=== PATIENT | female | born 1965 | race American Indian/Alaskan Native ===

== ENCOUNTER 2016-06-24 01:02 | Emergency (ER) | payer SELFPAY ==
[2016-06-24] MEDS ORDERED: TYLENOL ONE (06:37)
[2016-06-24] MEDS ORDERED: TYLENOL PO ONE (06:43)
--- NOTE | 2016-06-24 07:45 | XRay Report ---
FINAL REPORT PROCEDURE: XR SHOULDER 2 LT TECHNIQUE: AP views in internal and external rotation and Y-view are submitted. HISTORY: INJURY COMPARISON: None FINDINGS: Subtle cortical irregularity of the superior lateral humeral head is seen on image labeled 7. No other fractures are questioned. There is no dislocation or intra-articular loose body. IMPRESSION: Subtle fracture of the superolateral humeral head not excluded.
--- NOTE | 2016-06-24 08:23 | Emergency Department Report ---
HPI - General Chief Complaint: Shoulder Injury Time Seen by Provider: 06/24/16 07:57 - HPI HPI: 51-year-old female presents today with left shoulder pain 1 week. Patient states that she tripped and went into a brick wall. Positive for swelling. Denies numbness, weakness, paresthesias. Describes her pain as 7 out of 10 constant, sharp, stabbing pain. She had Tylenol with relief. Denies fever, chills, nausea, vomiting, chest pain, shortness of breath, abdominal pain. ED Past Medical Hx - Past Medical History Hx Hypertension: Yes Hx Psychiatric Treatment: Yes (schizophrenia,bipolar) Hx Asthma: Yes Additional medical history: Left foot fx. - Surgical History Additional Surgical History: . TUBAL LIGATION - Social History Smoking Status: Current Every Day Smoker Substance Use Type: Alcohol - Medications Home Medications: Home Medications Medication Instructions Recorded Confirmed Last Taken Type Ibuprofen [Motrin] 800 mg PO TID PRN #30 tablet 10/13/13 12/06/15 Unknown Rx Ibuprofen [Motrin] 800 mg PO Q8HR #30 tablet 01/19/15 12/06/15 Unknown Rx Ibuprofen [Motrin 600 MG tab] 600 mg PO Q8H PRN #30 tablet 02/21/15 12/06/15 Unknown Rx traMADol [Ultram 50 MG tab] 50 mg PO Q6HR PRN #20 tablet 02/21/15 12/06/15 Unknown Rx Albuterol Sulfate [Ventolin HFA] 2 puff IH Q4H PRN #1 hfa.aer.ad 08/10/15 Unknown Rx Benzonatate [Tessalon Perles] 100 mg PO Q8HR #21 capsule 08/10/15 12/06/15 Unknown Rx Lisinopril [Zestril TAB] 20 mg PO QDAY #30 tablet 08/10/15 12/06/15 Unknown Rx predniSONE [Deltasone] 20 mg PO QDAY #10 tab 08/10/15 12/06/15 Unknown Rx traMADol [Ultram 50 MG tab] 50 mg PO Q6HR PRN #20 tablet 06/24/16 Unknown Rx ED Review of Systems ROS: Stated complaint: LEFT SHOULDER PAIN Other details as noted in HPI Constitutional: denies: chills, fever, malaise Eyes: denies: eye pain ENT: denies: ear pain, throat pain, congestion Respiratory: denies: cough, shortness of breath, wheezing Cardiovascular: denies: chest pain, palpitations Endocrine: no symptoms reported Gastrointestinal: denies: abdominal pain, nausea, vomiting Musculoskeletal: joint swelling, arthralgia Neurological: denies: headache, weakness, numbness, paresthesias Physical Exam - Physical Exam Vital Signs: Vital Signs 06/24/16 06/24/16 01:10 01:19 Temperature 98 F 98.0 F Pulse Rate 86 86 Respiratory 18 18 Rate Blood Pressure 141/99 Blood Pressure 141/99 [Right] O2 Sat by Pulse 100 100 Oximetry Physical Exam: GENERAL: The patient is well-developed and well-nourished. Patient is in NAD. HEAD: Normocephalic. Atraumatic. NECK: Full range of motion. No midline or paraspinal tenderness to palpation. CHEST/LUNGS: Clear to auscultation throughout. HEART/CARDIOVASCULAR: Regular rate and rhythm. No murmurs, rubs or gallops. ABDOMEN: Abdomen is soft, nontender. Bowel sounds normoactive. No guarding or rebound tenderness. LEFT SHOULDER: Full shoulder range of motion. Tenderness to palpation over shoulder joint. Normal sensation. 2 point discrimination intact. Peripheral pulses intact. Capillary refill less than 2 seconds. Full elbow, wrist and digit range of motion. NEURO: Alert and oriented x 3. Normal gait. ED Course Vital Signs 06/24/16 06/24/16 01:10 01:19 Temperature 98 F 98.0 F Pulse Rate 86 86 Respiratory 18 18 Rate Blood Pressure 141/99 Blood Pressure 141/99 [Right] O2 Sat by Pulse 100 100 Oximetry ED Medical Decision Making - Lab Data Vital Signs 06/24/16 06/24/16 06/24/16 01:10 01:19 08:25 Temperature 98 F 98.0 F Pulse Rate 86 86 96 H Respiratory 18 18 16 Rate Blood Pressure 141/99 Blood Pressure 141/99 131/86 [Right] O2 Sat by Pulse 100 100 96 Oximetry - Radiology Data Radiology results: report reviewed PROCEDURE: XR SHOULDER 2 LT TECHNIQUE: AP views in internal and external rotation and Y-view are submitted. HISTORY: INJURY COMPARISON: None FINDINGS: Subtle cortical irregularity of the superior lateral humeral head is seen on image labeled 7. No other fractures are questioned. There is no dislocation or intra-articular loose body. IMPRESSION: Subtle fracture of the superolateral humeral head not excluded. - Medical Decision Making 51-year-old female presents today with left shoulder pain post injury one week ago. Her x-ray results reveal subtle fracture of the superolateral humeral head. Consulted with Dr. Rich. Her arm has been put in a sling. Referral for orthopedic has been provided. Patient is in no acute distress. She will be discharged home and is encouraged to follow up with a primary care provider and orthopedic. She will be sent home on tramadol and is encouraged to return to the emergency room for any worsening symptoms. Critical care attestation.: If time is entered above; I have spent that time in minutes in the direct care of this critically ill patient, excluding procedure time. ED Disposition Clinical Impression: Humeral head fracture Qualifiers: Encounter type: initial encounter Fracture type: closed Laterality: left Qualified Code(s): S42.292A - Other displaced fracture of upper end of left humerus, initial encounter for closed fracture Disposition: DISCHARGED TO HOME OR SELFCARE Is pt being admited?: No Does the pt Need Aspirin: No Condition: Stable Instructions: Shoulder Sprain (ED), Arm Fracture in Adults (ED) Additional Instructions: Follow-up with primary care provider and orthopedic. Return to the emergency department if symptoms worsen. Prescriptions: traMADol [Ultram 50 MG tab] 50 mg PO Q6HR PRN #20 tablet PRN Reason: Pain Referrals: DANN DURAN MD [Primary Care Provider] - 3-5 Days MARIE GAUTHIER MD [Staff Physician] - 3-5 Days [facility] [Outside] - 3-5 Days Forms: Work/School Release Form(ED) Time of Disposition: 08:25
[2016-06-24 08:26] VITALS: BP 131/86
== END 2016-06-24 08:25 | disposition home or self-care (01) ==
LOC: ED 01:02
DX: S42.292A Other displaced fracture of upper end of left humerus, initial encounter for closed fracture (principal); I10 Essential (primary) hypertension; F20.9 Schizophrenia, unspecified; F31.9 Bipolar disorder, unspecified; J45.909 Unspecified asthma, uncomplicated; F17.200 Nicotine dependence, unspecified, uncomplicated; W18.30XA Fall on same level, unspecified, initial encounter; Y93.89 Activity, other specified; Y99.9 Unspecified external cause status; Y92.89 Other specified places as the place of occurrence of the external cause

== ENCOUNTER 2017-02-23 08:56 | Inpatient (IN) | payer SELFPAY ==
[2017-02-23] MEDS ORDERED: ATIVAN ONE (09:52)
[2017-02-23] MEDS ORDERED: NACL 0.9% 1000 ML 1,000 ML IV ONE (09:56)
[2017-02-23] MEDS ORDERED: ATIVAN IV ONE ×2 (10:00→10:37)
[2017-02-23] MEDS ORDERED: NACL 0.9% 1000 ML 1,000 ML ONE (10:00)
--- NOTE | 2017-02-23 10:17 | Emergency Department Report ---
HPI - General Chief Complaint: Alcohol Time Seen by Provider: 02/23/17 09:51 - HPI HPI: Room 18 The patient is a 51-year-old female presenting with a chief complaint of "shaking." The patient states she has been unable to stop shaking since this morning. The patient is to consuming alcohol to 3 times a week. Patient states she usually consumes a sixpack of beer. Patient states she last consumed alcohol last night. Patient denies other complaints Location: [See above] Duration: One day Quality: Shaking Severity: Moderate Modifying factors: [see above] Context: [see above] Mode of transportation: [not driving] ED Past Medical Hx - Past Medical History Hx Hypertension: Yes Hx Psychiatric Treatment: Yes (schizophrenia,bipolar) Hx Asthma: Yes Additional medical history: Left foot fx. - Surgical History Additional Surgical History: . TUBAL LIGATION - Family History Family history: no significant - Social History Smoking Status: Current Every Day Smoker Substance Use Type: Alcohol - Medications Home Medications: Home Medications Medication Instructions Recorded Confirmed Last Taken Type Ibuprofen [Motrin] 800 mg PO TID PRN #30 tablet 10/13/13 12/06/15 Unknown Rx Ibuprofen [Motrin] 800 mg PO Q8HR #30 tablet 01/19/15 12/06/15 Unknown Rx Ibuprofen [Motrin 600 MG tab] 600 mg PO Q8H PRN #30 tablet 02/21/15 12/06/15 Unknown Rx traMADol [Ultram 50 MG tab] 50 mg PO Q6HR PRN #20 tablet 02/21/15 12/06/15 Unknown Rx Albuterol Sulfate [Ventolin HFA] 2 puff IH Q4H PRN #1 hfa.aer.ad 08/10/15 Unknown Rx Benzonatate [Tessalon Perles] 100 mg PO Q8HR #21 capsule 08/10/15 12/06/15 Unknown Rx Lisinopril [Zestril TAB] 20 mg PO QDAY #30 tablet 08/10/15 12/06/15 Unknown Rx predniSONE [Deltasone] 20 mg PO QDAY #10 tab 08/10/15 12/06/15 Unknown Rx traMADol [Ultram 50 MG tab] 50 mg PO Q6HR PRN #20 tablet 06/24/16 Unknown Rx ED Review of Systems ROS: Stated complaint: NAUSEA/VOMITING Other details as noted in HPI Comment: All other systems reviewed and negative Constitutional: denies: chills, fever Eyes: denies: eye pain, eye discharge, vision change ENT: denies: ear pain, throat pain Respiratory: denies: cough, shortness of breath, wheezing Cardiovascular: denies: chest pain, palpitations Endocrine: no symptoms reported Gastrointestinal: denies: abdominal pain, nausea, diarrhea Genitourinary: denies: urgency, dysuria, discharge Musculoskeletal: denies: back pain, joint swelling, arthralgia Skin: denies: rash, lesions Neurological: other (shaking). denies: headache, weakness, paresthesias Psychiatric: denies: anxiety, depression Hematological/Lymphatic: denies: easy bleeding, easy bruising Physical Exam - Physical Exam Vital Signs: Vital Signs 02/23/17 09:19 Temperature 98.5 F Pulse Rate 139 H Respiratory 22 Rate O2 Sat by Pulse 99 Oximetry Physical Exam: GENERAL: The patient is well-developed well-nourished female sitting on stretcher trembling. [] HEENT: Normocephalic. Atraumatic. Extraocular motions are intact. Patient has moist mucous membranes. NECK: Supple. Trachea midline CHEST/LUNGS: Clear to auscultation. There is no respiratory distress noted. HEART/CARDIOVASCULAR: Regular. There is no tachycardia. There is no gallop rub or murmur. ABDOMEN: Abdomen is soft, nontender. Patient has normal bowel sounds. There is no abdominal distention. SKIN: There is no rash. There is no edema. There is no diaphoresis. NEURO: The patient is awake, alert, and oriented. The patient is cooperative. The patient has normal speech. Patient trembling on stretcher MUSCULOSKELETAL: There is no evidence of acute injury. ED Course Vital Signs 02/23/17 09:19 Temperature 98.5 F Pulse Rate 139 H Respiratory 22 Rate O2 Sat by Pulse 99 Oximetry - Reevaluation(s) Reevaluation #1: 02/23/17 11:31 Patient improved. Not as tremulous. Slightly tachycardic at 107 bpm ED Medical Decision Making - Lab Data Result diagrams: 02/23/17 10:00 02/23/17 10:00 Laboratory Tests 02/23/17 02/23/17 02/23/17 10:00 10:00 10:00 WBC 8.5 RBC 3.44 L Hgb 12.5 Hct 37.4 MCV 109 H MCH 36 H MCHC 34 RDW 17.4 H Plt Count 85 L Lymph % (Auto) 34.7 [place] % (Auto) 10.8 H Eos % (Auto) 1.4 Baso % (Auto) 0.7 Lymph # 2.9 [place] # 0.9 H Eos # 0.1 Baso # 0.1 Seg Neutrophils % 52.4 Seg Neutrophils # 4.4 PT 12.9 INR 0.93 APTT 27.3 Sodium 123 L Potassium 4.0 Chloride 79.9 L Carbon Dioxide 16 L Anion Gap 31 BUN 4 L Creatinine 0.5 L Estimated GFR > 60 BUN/Creatinine Ratio 8 Glucose 198 H Calcium 9.2 Magnesium Total Bilirubin 0.80 AST 58 H ALT 16 Alkaline Phosphatase 95 Total Creatine Kinase 155 H CK-MB (CK-2) 4.3 H CK-MB (CK-2) Rel Index 2.7 Troponin T < 0.010 Total Protein 7.9 Albumin 4.6 Albumin/Globulin Ratio 1.4 Plasma/Serum Alcohol 02/23/17 02/23/17 10:00 10:00 WBC RBC Hgb Hct MCV MCH MCHC RDW Plt Count Lymph % (Auto) [place] % (Auto) Eos % (Auto) Baso % (Auto) Lymph # [place] # Eos # Baso # Seg Neutrophils % Seg Neutrophils # PT INR APTT Sodium Potassium Chloride Carbon Dioxide Anion Gap BUN Creatinine Estimated GFR BUN/Creatinine Ratio Glucose Calcium Magnesium 1.40 L Total Bilirubin AST ALT Alkaline Phosphatase Total Creatine Kinase CK-MB (CK-2) CK-MB (CK-2) Rel Index Troponin T Total Protein Albumin Albumin/Globulin Ratio Plasma/Serum Alcohol < 0.01 - Differential Diagnosis alcohol withdrawal, schizophrenia Critical care attestation.: If time is entered above; I have spent that time in minutes in the direct care of this critically ill patient, excluding procedure time. ED Disposition Clinical Impression: Alcohol withdrawal, Hyponatremia, Hypomagnesemia Disposition: OP ADMIT IP TO THIS HOSP Is pt being admited?: Yes Does the pt Need Aspirin: Yes Condition: Fair Time of Disposition: 11:33 (Dr Iesha stahl)
[2017-02-23 10:22] LABS: Basophils % (Auto) 0.7 % (0.0-1.8); Eosinophils % (Auto) 1.4 % (0.0-4.3); Hematocrit 37.4 % (30.3-42.9); Hemoglobin 12.5 gm/dl (10.1-14.3); Mean Corpuscular HGB Conc 34 % (30-34); Mean Corpuscular Hemoglobin 36 pg (28-32); Mean Corpuscular Volume 109 fl (79-97); Red Blood Count 3.44 M/mm3 (3.65-5.03); Red Cell Distribution Width 17.4 % (13.2-15.2); White Blood Count 8.5 K/mm3 (4.5-11.0)
[2017-02-23 10:30] LABS: Platelet Count 85 K/mm3 (140-440)
[2017-02-23 10:33] LABS: INR 0.93 (0.87-1.13)
[2017-02-23 10:34] LABS: Creatine Kinase MB 4.3 ng/mL (0.0-4.0); Partial Thromboplastin Time 27.3 Sec. (24.2-36.6)
[2017-02-23 10:36] LABS: Alanine Aminotransferase 16 units/L (7-56); Albumin 4.6 g/dL (3.9-5); Albumin/Globulin Ratio 1.4 %; Alkaline Phosphatase 95 units/L (35-129); Anion Gap 31 mmol/L; BUN/Creatinine Ratio 8; Blood Urea Nitrogen 4 mg/dL (7-17); Calcium 9.2 mg/dL (8.4-10.2); Carbon Dioxide 16 mmol/L (22-30); Chloride 79.9 mmol/L (98-107); Creatine Kinase 155 units/L (30-135); Glucose 198 mg/dL (65-100); Sodium 123 mmol/L (137-145); Total Protein 7.9 g/dL (6.3-8.2)
[2017-02-23] MEDS ORDERED: VITAMIN B-1 100 MG, FOLVITE 1 MG, INFUVITE 10 ML, MAGNESIUM SULFATE 2 GM in NACL 0.9% 1... IV ONE (12:28)
--- NOTE | 2017-02-23 23:39 | History and Physical Report ---
History of Present Illness Date of examination: 02/23/17 Date of admission: 02/23/17 11:33 Chief complaint: CC Tremulous feeling since AM History of present illness: [place]: The patient is a 51-year-old female presenting with a chief complaint of "shaking." The patient states she has been unable to stop shaking since this morning. The patient is to consuming alcohol to 3 times a week. Patient states she usually consumes a sixpack of beer. Patient states she last consumed alcohol last night. Patient denies other complaints Past Medical History Hx Hypertension: Yes Hx Psychiatric Treatment: Yes (schizophrenia,bipolar) Hx Asthma: Yes Additional medical history: Left foot fx. - Surgical History Additional Surgical History: . TUBAL LIGATION - Family History Family history: no significant - Social History Smoking Status: Current Every Day Smoker Substance Use Type: Alcohol - Medications Home Medications: Home Medications Medication Instructions Recorded Confirmed Last Taken Type Ibuprofen [Motrin] 800 mg PO TID PRN #30 tablet 10/13/13 12/06/15 Unknown Rx Ibuprofen [Motrin] 800 mg PO Q8HR #30 tablet 01/19/15 12/06/15 Unknown Rx Ibuprofen [Motrin 600 MG tab] 600 mg PO Q8H PRN #30 tablet 02/21/15 12/06/15 Unknown Rx traMADol [Ultram 50 MG tab] 50 mg PO Q6HR PRN #20 tablet 02/21/15 12/06/15 Unknown Rx Albuterol Sulfate [Ventolin HFA] 2 puff IH Q4H PRN #1 hfa.aer.ad 08/10/15 Unknown Rx Benzonatate [Tessalon Perles] 100 mg PO Q8HR #21 capsule 08/10/15 12/06/15 Unknown Rx Lisinopril [Zestril TAB] 20 mg PO QDAY #30 tablet 08/10/15 12/06/15 Unknown Rx predniSONE [Deltasone] 20 mg PO QDAY #10 tab 08/10/15 12/06/15 Unknown Rx traMADol [Ultram 50 MG tab] 50 mg PO Q6HR PRN #20 tablet 06/24/16 Unknown Rx Review of Systems Stated complaint: NAUSEA/VOMITING Other details as noted in HPI Comment: All other systems reviewed and negative Constitutional: denies: chills, fever Eyes: denies: eye pain, eye discharge, vision change ENT: denies: ear pain, throat pain Respiratory: denies: cough, shortness of breath, wheezing Cardiovascular: denies: chest pain, palpitations Endocrine: no symptoms reported Gastrointestinal: denies: abdominal pain, nausea, diarrhea Genitourinary: denies: urgency, dysuria, discharge Musculoskeletal: denies: back pain, joint swelling, arthralgia Skin: denies: rash, lesions Neurological: other (shaking). denies: headache, weakness, paresthesias Psychiatric: denies: anxiety, depression Hematological/Lymphatic: denies: easy bleeding, easy bruising Medications and Allergies Allergies Allergy/AdvReac Type Severity Reaction Status Date / Time Sulfa (Sulfonamide Allergy Itching Verified 08/10/15 12:45 Antibiotics) Home Medications Medication Instructions Recorded Confirmed Last Taken Type Ibuprofen [Motrin] 800 mg PO TID PRN #30 tablet 10/13/13 12/06/15 Unknown Rx Ibuprofen [Motrin] 800 mg PO Q8HR #30 tablet 01/19/15 12/06/15 Unknown Rx Ibuprofen [Motrin 600 MG tab] 600 mg PO Q8H PRN #30 tablet 02/21/15 12/06/15 Unknown Rx traMADol [Ultram 50 MG tab] 50 mg PO Q6HR PRN #20 tablet 02/21/15 12/06/15 Unknown Rx Albuterol Sulfate [Ventolin HFA] 2 puff IH Q4H PRN #1 hfa.aer.ad 08/10/15 Unknown Rx Benzonatate [Tessalon Perles] 100 mg PO Q8HR #21 capsule 08/10/15 12/06/15 Unknown Rx Lisinopril [Zestril TAB] 20 mg PO QDAY #30 tablet 08/10/15 12/06/15 Unknown Rx predniSONE [Deltasone] 20 mg PO QDAY #10 tab 08/10/15 12/06/15 Unknown Rx traMADol [Ultram 50 MG tab] 50 mg PO Q6HR PRN #20 tablet 06/24/16 Unknown Rx Exam - Constitutional Vitals: Temp Pulse Resp BP Pulse Ox 98.4 F 96 H 16 141/76 100 02/23/17 22:03 02/23/17 22:03 02/23/17 22:03 02/23/17 22:03 02/23/17 22:03 General appearance: Present: no acute distress, well-nourished - EENT Eyes: Present: PERRL ENT: hearing intact, clear oral mucosa - Neck Neck: Present: supple, normal ROM - Respiratory Respiratory effort: normal Respiratory: bilateral: CTA - Cardiovascular Heart rate: 80 Rhythm: regular Heart Sounds: Present: S1 & S2. Absent: rub, click - Extremities Extremities: no ischemia, pulses intact, pulses symmetrical, No edema Peripheral Pulses: within normal limits - Abdominal General gastrointestinal: Present: soft, non-tender, non-distended, normal bowel sounds Female genitourinary: Present: normal - Rectal Rectal Exam: deferred - Integumentary Integumentary: Present: clear, warm, dry - Musculoskeletal Musculoskeletal: gait normal, strength equal bilaterally - Psychiatric Psychiatric: appropriate mood/affect, intact judgment & insight - Neurologic Neurologic: CNII-XII intact, moves all extremities - Allied Health Allied health notes reviewed: nursing, case management Results - Labs CBC & Chem 7: 02/24/17 00:57 02/24/17 00:57 Labs: Laboratory Last Values WBC 8.5 K/mm3 (4.5-11.0) 02/23/17 10:00 RBC 3.44 M/mm3 (3.65-5.03) L 02/23/17 10:00 Hgb 12.5 gm/dl (10.1-14.3) 02/23/17 10:00 Hct 37.4 % (30.3-42.9) 02/23/17 10:00 MCV 109 fl (79-97) H 02/23/17 10:00 MCH 36 pg (28-32) H 02/23/17 10:00 MCHC 34 % (30-34) 02/23/17 10:00 RDW 17.4 % (13.2-15.2) H 02/23/17 10:00 Plt Count 85 K/mm3 (140-440) L 02/23/17 10:00 Lymph % (Auto) 34.7 % (13.4-35.0) 02/23/17 10:00 [place] % (Auto) 10.8 % (0.0-7.3) H 02/23/17 10:00 Eos % (Auto) 1.4 % (0.0-4.3) 02/23/17 10:00 Baso % (Auto) 0.7 % (0.0-1.8) 02/23/17 10:00 Lymph # 2.9 K/mm3 (1.2-5.4) 02/23/17 10:00 [place] # 0.9 K/mm3 (0.0-0.8) H 02/23/17 10:00 Eos # 0.1 K/mm3 (0.0-0.4) 02/23/17 10:00 Baso # 0.1 K/mm3 (0.0-0.1) 02/23/17 10:00 Seg Neutrophils % 52.4 % (40.0-70.0) 02/23/17 10:00 Seg Neutrophils # 4.4 K/mm3 (1.8-7.7) 02/23/17 10:00 PT 12.9 Sec. (12.2-14.9) 02/23/17 10:00 INR 0.93 (0.87-1.13) 02/23/17 10:00 APTT 27.3 Sec. (24.2-36.6) 02/23/17 10:00 Sodium 123 mmol/L (137-145) L 02/23/17 10:00 Potassium 4.0 mmol/L (3.6-5.0) 02/23/17 10:00 Chloride 79.9 mmol/L (98-107) L 02/23/17 10:00 Carbon Dioxide 16 mmol/L (22-30) L 02/23/17 10:00 Anion Gap 31 mmol/L 02/23/17 10:00 BUN 4 mg/dL (7-17) L 02/23/17 10:00 Creatinine 0.5 mg/dL (0.7-1.2) L 02/23/17 10:00 Estimated GFR > 60 ml/min 02/23/17 10:00 BUN/Creatinine Ratio 8 % 02/23/17 10:00 Glucose 198 mg/dL (65-100) H 02/23/17 10:00 Calcium 9.2 mg/dL (8.4-10.2) 02/23/17 10:00 Magnesium 1.40 mg/dL (1.7-2.3) L 02/23/17 10:00 Total Bilirubin 0.80 mg/dL (0.1-1.2) 02/23/17 10:00 AST 58 units/L (5-40) H 02/23/17 10:00 ALT 16 units/L (7-56) 02/23/17 10:00 Alkaline Phosphatase 95 units/L (35-129) 02/23/17 10:00 Total Creatine Kinase 155 units/L (30-135) H 02/23/17 10:00 CK-MB (CK-2) 4.3 ng/mL (0.0-4.0) H 02/23/17 10:00 CK-MB (CK-2) Rel Index 2.7 (0-4) 02/23/17 10:00 Troponin T < 0.010 ng/mL (0.00-0.029) 02/23/17 10:00 Total Protein 7.9 g/dL (6.3-8.2) 02/23/17 10:00 Albumin 4.6 g/dL (3.9-5) 02/23/17 10:00 Albumin/Globulin Ratio 1.4 % 02/23/17 10:00 Plasma/Serum Alcohol < 0.01 gm% (0-0.07) 02/23/17 10:00 - Imaging and Cardiology EKG: report reviewed Assessment and Plan Advance Directives: Yes VTE prophylaxis?: Chemical Plan of care discussed with patient/family: Yes - Patient Problems (1) Hyponatremia Current Visit: Yes Status: Acute Plan to address problem: Mild IV fluids for now (2) Hypokalemia Current Visit: Yes Status: Acute Plan to address problem: Supplemented (3) Hypomagnesemia Current Visit: Yes Status: Acute Plan to address problem: supplemented (4) EtOH dependence Current Visit: Yes Status: Chronic Qualifiers: Substance use status: uncomplicated Qualified Code(s): F10.20 - Alcohol dependence, uncomplicated Plan to address problem: CIWA protocol initiated (5) DVT prophylaxis Current Visit: Yes Status: Acute (6) DVT prophylaxis Current Visit: Yes Status: Acute Plan to address problem: ON Lovenox
[2017-02-24] MEDS ORDERED: DULCOLAX PR PRN (00:35)
[2017-02-24] MEDS ORDERED: ZOFRAN IV PRN (00:35)
[2017-02-24] MEDS ORDERED: TYLENOL PO PRN (00:35)
[2017-02-24] MEDS ORDERED: DILAUDID IV PRN (00:35)
[2017-02-24] MEDS ORDERED: MILK OF MAGNESIA PO PRN (00:35)
[2017-02-24] MEDS ORDERED: D5NS 1,000 ML IV SCH (01:00)
[2017-02-24 01:18] LABS: Hematocrit 33.5 % (30.3-42.9); Hemoglobin 11.4 gm/dl (10.1-14.3); Mean Corpuscular HGB Conc 34 % (30-34); Mean Corpuscular Hemoglobin 36 pg (28-32); Mean Corpuscular Volume 107 fl (79-97); Red Blood Count 3.12 M/mm3 (3.65-5.03); Red Cell Distribution Width 16.9 % (13.2-15.2); White Blood Count 4.2 K/mm3 (4.5-11.0)
[2017-02-24 01:26] LABS: Platelet Count 75 K/mm3 (140-440)
[2017-02-24 01:35] LABS: Alanine Aminotransferase 13 units/L (7-56); Albumin/Globulin Ratio 1.7 %; Alkaline Phosphatase 72 units/L (35-129); Anion Gap 22 mmol/L; BUN/Creatinine Ratio 10; Blood Urea Nitrogen 3 mg/dL (7-17); Calcium 8.6 mg/dL (8.4-10.2); Carbon Dioxide 20 mmol/L (22-30); Chloride 93.3 mmol/L (98-107); Glucose 74 mg/dL (65-100); Sodium 132 mmol/L (137-145); Total Protein 6.3 g/dL (6.3-8.2)
[2017-02-24 05:38] LABS: Anisocytosis 1+; Basophils % (Manual) 0 % (0.0-1.8); Blastocytes % (Manual) 0 %; Eosinophils % (Manual) 0 % (0.0-4.3); Target Cells Few
[2017-02-24 05:39] LABS: Diff Status Complete; Platelet Estimate Consistent w Auto
[2017-02-24] MEDS ORDERED: MAGNESIUM SULFATE 2GM/50ML 2 GM/50 ML BAG IV ONE (08:24)
[2017-02-24] MEDS ORDERED: K-DUR PO ONE (08:24)
[2017-02-24] MEDS: PEPCID IV SCH ×2 (10:09→22:05)
--- NOTE | 2017-02-24 11:14 | Progress Note ---
Assessment and Plan Assessment and plan: (1) Hyponatremia Continue IV fluids for now (2) Hypokalemia Replete potassium. (3) Hypomagnesemia Replete magnesium. (4) EtOH dependence Continue CIWA protocol (5) DVT prophylaxis Lovenox. (6) disposition Anticipated discharge in a.m. History Interval history: No new issues overnight. Hospitalist Physical - Constitutional Vitals: Temp Pulse Resp BP Pulse Ox 99.1 F 78 16 137/89 97 02/24/17 10:33 02/24/17 10:33 02/24/17 10:33 02/24/17 10:33 02/24/17 10:33 General appearance: Present: no acute distress, well-nourished - EENT Eyes: Present: PERRL, EOM intact ENT: hearing intact, clear oral mucosa, dentition normal - Neck Neck: Present: supple, normal ROM - Respiratory Respiratory effort: normal Respiratory: bilateral: CTA - Cardiovascular Rhythm: regular Heart Sounds: Present: S1 & S2. Absent: gallop, rub - Extremities Extremities: no ischemia, No edema, Full ROM - Abdominal General gastrointestinal: soft, non-tender, non-distended, normal bowel sounds - Integumentary Integumentary: Present: clear, warm, dry - Neurologic Neurologic: CNII-XII intact, moves all extremities Results - Labs CBC & Chem 7: 02/24/17 00:57 02/24/17 00:57 Labs: Laboratory Last Values WBC 4.2 K/mm3 (4.5-11.0) L 02/24/17 00:57 RBC 3.12 M/mm3 (3.65-5.03) L 02/24/17 00:57 Hgb 11.4 gm/dl (10.1-14.3) 02/24/17 00:57 Hct 33.5 % (30.3-42.9) 02/24/17 00:57 MCV 107 fl (79-97) H 02/24/17 00:57 MCH 36 pg (28-32) H 02/24/17 00:57 MCHC 34 % (30-34) 02/24/17 00:57 RDW 16.9 % (13.2-15.2) H 02/24/17 00:57 Plt Count 75 K/mm3 (140-440) L 02/24/17 00:57 Lymph % (Auto) 34.7 % (13.4-35.0) 02/23/17 10:00 Wayne % (Auto) 10.8 % (0.0-7.3) H 02/23/17 10:00 Eos % (Auto) 1.4 % (0.0-4.3) 02/23/17 10:00 Baso % (Auto) 0.7 % (0.0-1.8) 02/23/17 10:00 Lymph # 2.9 K/mm3 (1.2-5.4) 02/23/17 10:00 Wayne # 0.9 K/mm3 (0.0-0.8) H 02/23/17 10:00 Eos # 0.1 K/mm3 (0.0-0.4) 02/23/17 10:00 Baso # 0.1 K/mm3 (0.0-0.1) 02/23/17 10:00 Add Manual Diff Complete 02/24/17 00:57 Total Counted 100 02/24/17 00:57 Seg Neutrophils % 52.4 % (40.0-70.0) 02/23/17 10:00 Seg Neuts % (Manual) 71.0 % (40.0-70.0) H 02/24/17 00:57 Band Neutrophils % 8.0 % 02/24/17 00:57 Lymphocytes % (Manual) 18.0 % (13.4-35.0) 02/24/17 00:57 Reactive Lymphs % (Man) 0 % 02/24/17 00:57 Monocytes % (Manual) 3.0 % (0.0-7.3) 02/24/17 00:57 Eosinophils % (Manual) 0 % (0.0-4.3) 02/24/17 00:57 Basophils % (Manual) 0 % (0.0-1.8) 02/24/17 00:57 Metamyelocytes % 0 % 02/24/17 00:57 Myelocytes % 0 % 02/24/17 00:57 Promyelocytes % 0 % 02/24/17 00:57 Blast Cells % 0 % 02/24/17 00:57 Nucleated RBC % Not Reportable 02/24/17 00:57 Seg Neutrophils # 4.4 K/mm3 (1.8-7.7) 02/23/17 10:00 Seg Neutrophils # Man 3.0 K/mm3 (1.8-7.7) 02/24/17 00:57 Band Neutrophils # 0.3 K/mm3 02/24/17 00:57 Lymphocytes # (Manual) 0.8 K/mm3 (1.2-5.4) L 02/24/17 00:57 Abs React Lymphs (Man) 0.0 K/mm3 02/24/17 00:57 Monocytes # (Manual) 0.1 K/mm3 (0.0-0.8) 02/24/17 00:57 Eosinophils # (Manual) 0.0 K/mm3 (0.0-0.4) 02/24/17 00:57 Basophils # (Manual) 0.0 K/mm3 (0.0-0.1) 02/24/17 00:57 Metamyelocytes # 0.0 K/mm3 02/24/17 00:57 Myelocytes # 0.0 K/mm3 02/24/17 00:57 Promyelocytes # 0.0 K/mm3 02/24/17 00:57 Blast Cells # 0.0 K/mm3 02/24/17 00:57 WBC Morphology Not Reportable 02/24/17 00:57 Hypersegmented Neuts Not Reportable 02/24/17 00:57 Hyposegmented Neuts Not Reportable 02/24/17 00:57 Hypogranular Neuts Not Reportable 02/24/17 00:57 Smudge Cells Not Reportable 02/24/17 00:57 Toxic Granulation Not Reportable 02/24/17 00:57 Toxic Vacuolation Not Reportable 02/24/17 00:57 Dohle Bodies Not Reportable 02/24/17 00:57 Pelger-Huet Anomaly Not Reportable 02/24/17 00:57 Andrew Rods Not Reportable 02/24/17 00:57 Platelet Estimate Consistent w auto 02/24/17 00:57 Clumped Platelets Not Reportable 02/24/17 00:57 Plt Clumps, EDTA Not Reportable 02/24/17 00:57 Large Platelets Not Reportable 02/24/17 00:57 Giant Platelets Not Reportable 02/24/17 00:57 Platelet Satelliting Not Reportable 02/24/17 00:57 Plt Morphology Comment Not Reportable 02/24/17 00:57 RBC Morphology Not Reportable 02/24/17 00:57 Dimorphic RBCs Not Reportable 02/24/17 00:57 Polychromasia Not Reportable 02/24/17 00:57 Hypochromasia Not Reportable 02/24/17 00:57 Poikilocytosis Not Reportable 02/24/17 00:57 Anisocytosis 1+ 02/24/17 00:57 Microcytosis Not Reportable 02/24/17 00:57 Macrocytosis Not Reportable 02/24/17 00:57 Spherocytes Not Reportable 02/24/17 00:57 Pappenheimer Bodies Not Reportable 02/24/17 00:57 Sickle Cells Not Reportable 02/24/17 00:57 Target Cells Few 02/24/17 00:57 Tear Drop Cells Not Reportable 02/24/17 00:57 Ovalocytes Not Reportable 02/24/17 00:57 Helmet Cells Not Reportable 02/24/17 00:57 [place] Bodies Not Reportable 02/24/17 00:57 Andrews Rings Not Reportable 02/24/17 00:57 Angel Cells Not Reportable 02/24/17 00:57 Bite Cells Not Reportable 02/24/17 00:57 Crenated Cell Not Reportable 02/24/17 00:57 Elliptocytes Not Reportable 02/24/17 00:57 Acanthocytes (Spur) Not Reportable 02/24/17 00:57 Rouleaux Not Reportable 02/24/17 00:57 Hemoglobin C Crystals Not Reportable 02/24/17 00:57 Schistocytes Not Reportable 02/24/17 00:57 Malaria parasites Not Reportable 02/24/17 00:57 Da Bodies Not Reportable 02/24/17 00:57 Hem Pathologist Commnt No 02/24/17 00:57 PT 12.9 Sec. (12.2-14.9) 02/23/17 10:00 INR 0.93 (0.87-1.13) 02/23/17 10:00 APTT 27.3 Sec. (24.2-36.6) 02/23/17 10:00 Sodium 132 mmol/L (137-145) L D 02/24/17 00:57 Potassium 3.0 mmol/L (3.6-5.0) L D 02/24/17 00:57 Chloride 93.3 mmol/L (98-107) L 02/24/17 00:57 Carbon Dioxide 20 mmol/L (22-30) L 02/24/17 00:57 Anion Gap 22 mmol/L 02/24/17 00:57 BUN 3 mg/dL (7-17) L 02/24/17 00:57 Creatinine 0.3 mg/dL (0.7-1.2) L 02/24/17 00:57 Estimated GFR > 60 ml/min 02/24/17 00:57 BUN/Creatinine Ratio 10 % 02/24/17 00:57 Glucose 74 mg/dL (65-100) 02/24/17 00:57 Hemoglobin A1c 5.0 % (4-6) 02/24/17 00:57 Calcium 8.6 mg/dL (8.4-10.2) 02/24/17 00:57 Magnesium 1.50 mg/dL (1.7-2.3) L 02/24/17 10:14 Total Bilirubin 0.60 mg/dL (0.1-1.2) 02/24/17 00:57 AST 54 units/L (5-40) H 02/24/17 00:57 ALT 13 units/L (7-56) 02/24/17 00:57 Alkaline Phosphatase 72 units/L (35-129) 02/24/17 00:57 Ammonia 45.0 umol/L (25-60) 02/24/17 10:14 Total Creatine Kinase 155 units/L (30-135) H 02/23/17 10:00 CK-MB (CK-2) 4.3 ng/mL (0.0-4.0) H 02/23/17 10:00 CK-MB (CK-2) Rel Index 2.7 (0-4) 02/23/17 10:00 Troponin T < 0.010 ng/mL (0.00-0.029) 02/23/17 10:00 Total Protein 6.3 g/dL (6.3-8.2) D 02/24/17 00:57 Albumin 4.0 g/dL (3.9-5) 02/24/17 00:57 Albumin/Globulin Ratio 1.7 % 02/24/17 00:57 Plasma/Serum Alcohol < 0.01 gm% (0-0.07) 02/23/17 10:00
[2017-02-24] MEDS: 1: FOLVITE 1 MG, INFUVITE 10 ML, VITAMIN B-1 100 MG in NACL 0.9% 1000 ML 988.8 ML 2: NA IV SCH (12:25)
--- NOTE | 2017-02-24 15:12 | Discharge Summary ---
Providers - Providers Date of Admission: 02/23/17 11:33 Date of discharge: 02/25/17 Attending physician: AYLIN RAM Primary care physician: [employer] Hospitalization Reason for admission: tremors Condition: Fair Hospital course: This is a 51-year-old female who presented to the emergency department with chief complaint of "shaking". Patient was admitted with diagnosis of EtOH dependence/withdrawal and electrolyte disturbances. Patient was noted to have hyponatremia, hypokalemia and hypomagnesemia. Patient was placed on CIWA protocol and stabilized. Patient had no evidence of DTs. Electrolytes were replaced and patient stabilized. Patient is felt to have received maximal hospital benefit. Dedicated discharge time 31 minutes. Disposition: DC-01 TO HOME OR SELFCARE Time spent for discharge: 32 - Discharge Diagnoses (1) Alcohol withdrawal Status: Acute (2) Hypokalemia Status: Acute (3) Hypomagnesemia Status: Acute (4) Hyponatremia Status: Acute (5) EtOH dependence Status: Chronic Qualifiers: Substance use status: uncomplicated Qualified Code(s): F10.20 - Alcohol dependence, uncomplicated (6) Alcohol use disorder Status: Acute Core Measure Documentation - Palliative Care Palliative Care/ Comfort Measures: Not Applicable - Core Measures Any of the following diagnoses?: none Exam - Constitutional Vitals: Temp Pulse Resp BP Pulse Ox 99.1 F 78 16 137/89 97 02/24/17 10:33 02/24/17 10:33 02/24/17 10:33 02/24/17 10:33 02/24/17 10:33 General appearance: Present: no acute distress, well-nourished - EENT Eyes: Present: PERRL ENT: hearing intact, clear oral mucosa - Neck Neck: Present: supple, normal ROM - Respiratory Respiratory effort: normal Respiratory: bilateral: CTA - Cardiovascular Heart Sounds: Present: S1 & S2. Absent: rub, click - Extremities Extremities: pulses symmetrical, No edema Peripheral Pulses: within normal limits - Abdominal General gastrointestinal: Present: soft, non-tender, non-distended, normal bowel sounds Female genitourinary: Present: normal - Integumentary Integumentary: Present: clear, warm, dry - Musculoskeletal Musculoskeletal: gait normal, strength equal bilaterally - Psychiatric Psychiatric: appropriate mood/affect, intact judgment & insight - Neurologic Neurologic: CNII-XII intact, moves all extremities Plan Activity: no restrictions Weight Bearing Status: Full Weight Bearing Diet: regular Follow up with: PRIMARY CARE, [Primary Care Provider] - 3-5 Days Prescriptions: Lisinopril [Zestril TAB] 20 mg PO QDAY #30 tablet Mvit-Mins/Folic Acid/Soy Isofl [One-A-Day Menopause Formula Tb] 1 each PO DAILY #30 tablet Thiamine [Vitamin B-1] 100 mg PO QDAY #15 tablet
[2017-02-24] MEDS ORDERED: NACL 0.9% 1000 ML 1,000 ML IV SCH (22:00)
[2017-02-25 06:17] LABS: Basophils % (Auto) 0.5 % (0.0-1.8); Eosinophils % (Auto) 1.3 % (0.0-4.3); Hematocrit 31.4 % (30.3-42.9); Hemoglobin 10.5 gm/dl (10.1-14.3); Mean Corpuscular HGB Conc 34 % (30-34); Mean Corpuscular Hemoglobin 37 pg (28-32); Mean Corpuscular Volume 109 fl (79-97); Red Blood Count 2.88 M/mm3 (3.65-5.03); Red Cell Distribution Width 17.7 % (13.2-15.2); White Blood Count 4.7 K/mm3 (4.5-11.0)
[2017-02-25 06:19] LABS: Platelet Count 70 K/mm3 (140-440)
[2017-02-25 06:36] LABS: Alanine Aminotransferase 16 units/L (7-56); Albumin 3.5 g/dL (3.9-5); Albumin/Globulin Ratio 1.4 %; Alkaline Phosphatase 66 units/L (35-129); Anion Gap 19 mmol/L; BUN/Creatinine Ratio 13; Blood Urea Nitrogen 5 mg/dL (7-17); Calcium 8.6 mg/dL (8.4-10.2); Carbon Dioxide 19 mmol/L (22-30); Chloride 105.6 mmol/L (98-107); Glucose 94 mg/dL (65-100); Potassium 3.4 mmol/L (3.6-5.0); Sodium 140 mmol/L (137-145)
[2017-02-25 07:32] VITALS: BP 133/71
[2017-02-25] MEDS ORDERED: K-DUR PO ONE (08:05)
[2017-02-25] MEDS: PEPCID IV SCH (09:04)
[2017-02-25] MEDS: 1: FOLVITE 1 MG, INFUVITE 10 ML, VITAMIN B-1 100 MG in NACL 0.9% 1000 ML 988.8 ML 2: NA IV SCH (10:00)
== END 2017-02-25 10:00 | disposition home or self-care (01) | DRG 897 ==
LOC: ED 08:56 → 3A 11:33
PROVIDERS: ADMIT Internal Medicine; ATTEND Hospitalist
DX: F10.239 Alcohol dependence with withdrawal, unspecified (principal); E87.1 Hypo-osmolality and hyponatremia; E83.42 Hypomagnesemia; I10 Essential (primary) hypertension; F17.200 Nicotine dependence, unspecified, uncomplicated; F31.9 Bipolar disorder, unspecified; E87.6 Hypokalemia; F20.9 Schizophrenia, unspecified; Z98.51 Tubal ligation status; Z79.1 Long term (current) use of non-steroidal anti-inflammatories (NSAID); Z79.899 Other long term (current) drug therapy; Z88.2 Allergy status to sulfonamides
CPT/HCPCS: 36415; 80053; 80320; 82140; 82550; 82553; 83036; 83735; 84484; 85007; 85025; 85610; 85730; 96361; 96374; 99285; 99406; G0480; J2060; J3411; J3475; J7030; J7042

== ENCOUNTER 2017-06-22 15:38 | Emergency (ER) | payer SELFPAY ==
[2017-06-22] MEDS ORDERED: NACL 0.9% 1000 ML 1,000 ML IV ONE (16:40)
--- NOTE | 2017-06-22 16:40 | Emergency Department Report ---
HPI - HPI HPI: patient is here for alcohol intoxication. She drinks about 12 beers today, was ambulating to a friend's house but was later found in abbreviated on the side of the streets. She denies any trauma, states she just drank too much. She does not want any alcohol detox. She tried to get her son to come pick her up but he didn't come. He denies any upper or lower extremity pain. Denies any chest pain shortness of breath. <FLORENCIA OLSEN - Last Filed: 06/22/17 20:01> <YASIR VILLARREAL - Last Filed: 06/23/17 01:44> - General Chief Complaint: Alcohol Time Seen by Provider: 06/22/17 16:37 ED Past Medical Hx - Past Medical History Previous Medical History?: Yes Hx Hypertension: Yes Hx Psychiatric Treatment: Yes (schizophrenia,bipolar, depression) Hx Asthma: Yes Hx Tuberculosis: No Additional medical history: Left foot fx. - Surgical History Past Surgical History?: Yes Additional Surgical History: . TUBAL LIGATION - Social History Smoking Status: Current Every Day Smoker Substance Use Type: Alcohol <FLORENCIA OLSEN - Last Filed: 06/22/17 20:01> <YASIR VILLARREAL - Last Filed: 06/23/17 01:44> - Medications Home Medications: Home Medications Medication Instructions Recorded Confirmed Last Taken Type Ibuprofen [Motrin 800 MG tab] 800 mg PO TID PRN #30 tablet 10/13/13 12/06/15 Unknown Rx Ibuprofen [Motrin 800 MG tab] 800 mg PO Q8HR #30 tablet 01/19/15 12/06/15 Unknown Rx Ibuprofen [Motrin 600 MG tab] 600 mg PO Q8H PRN #30 tablet 02/21/15 12/06/15 Unknown Rx traMADol [Ultram 50 MG tab] 50 mg PO Q6HR PRN #20 tablet 02/21/15 12/06/15 Unknown Rx Albuterol Sulfate [Ventolin HFA] 2 puff IH Q4H PRN #1 hfa.aer.ad 08/10/15 Unknown Rx Benzonatate [Tessalon Perles] 100 mg PO Q8HR #21 capsule 08/10/15 12/06/15 Unknown Rx predniSONE [Deltasone] 20 mg PO QDAY #10 tab 08/10/15 12/06/15 Unknown Rx traMADol [Ultram 50 MG tab] 50 mg PO Q6HR PRN #20 tablet 06/24/16 Unknown Rx Lisinopril [Zestril TAB] 20 mg PO QDAY #30 tablet 02/24/17 Unknown Rx Mvit-Mins/Folic Acid/Soy Isofl 1 each PO DAILY #30 tablet 02/24/17 Unknown Rx [One-A-Day Menopause Formula Tb] Thiamine [Vitamin B-1] 100 mg PO QDAY #15 tablet 02/24/17 Unknown Rx ED Review of Systems ROS: Stated complaint: ETOH Other details as noted in HPI Comment: All other systems reviewed and negative Constitutional: see HPI Cardiovascular: as per HPI. denies: chest pain, palpitations, dyspnea on exertion Psychiatric: denies: anxiety, depression, auditory hallucinations, visual hallucinations, homicidal thoughts, suicidal thoughts <FLORENCIA OLSEN - Last Filed: 06/22/17 20:01> ROS: Stated complaint: ETOH Other details as noted in HPI <YASIR VILLARREAL - Last Filed: 06/23/17 01:44> Physical Exam - Physical Exam Vital Signs: Vital Signs 06/22/17 16:16 Temperature 98.2 F Pulse Rate 86 Respiratory 16 Rate Blood Pressure 112/78 O2 Sat by Pulse 96 Oximetry Physical Exam: - Physical Exam Physical Exam: - General Limitations: No Limitations General appearance: alert, in no apparent distress, appear drunk - Head Head exam: Present: atraumatic, normocephalic - Eye Eye exam: Present: normal appearance - ENT ENT exam: Present: mucous membranes moist - Neck Neck exam: Present: normal inspection - Respiratory Respiratory exam: Present: normal lung sounds bilaterally. Absent: respiratory distress - Cardiovascular Cardiovascular Exam: Present: normal rhythm, tachycardia. Absent: systolic murmur, diastolic murmur, rubs, gallop - GI/Abdominal GI/Abdominal exam: Present: soft, normal bowel sounds - Extremities Exam Extremities exam: Present: normal inspection - Back Exam Back exam: Present: normal inspection - Neurological Exam Neurological exam: Present: alert, oriented X3 and appears drunk - Psychiatric Psychiatric exam: normal affect and mood - Skin Skin exam: Present: warm, dry, intact, normal color. Absent: rash <FLORENCIA OLSEN - Last Filed: 06/22/17 20:01> - Physical Exam Vital Signs: Vital Signs 06/22/17 06/22/17 06/22/17 16:16 18:14 19:18 Temperature 98.2 F 98.2 F Pulse Rate 86 83 Respiratory 16 18 20 Rate Blood Pressure 112/78 Blood Pressure 122/68 [Left] O2 Sat by Pulse 96 98 100 Oximetry 06/22/17 06/22/17 06/22/17 21:37 21:38 21:40 Temperature Pulse Rate Respiratory Rate Blood Pressure 112/66 112/66 112/66 Blood Pressure [Left] O2 Sat by Pulse 97 95 96 Oximetry 06/22/17 06/22/17 06/22/17 21:42 21:44 21:45 Temperature Pulse Rate Respiratory Rate Blood Pressure 112/66 112/66 111/70 Blood Pressure [Left] O2 Sat by Pulse 97 96 96 Oximetry 06/22/17 06/22/17 06/22/17 21:46 21:48 21:50 Temperature Pulse Rate Respiratory Rate Blood Pressure 111/70 111/70 111/70 Blood Pressure [Left] O2 Sat by Pulse 96 99 96 Oximetry 06/22/17 06/22/17 06/22/17 21:52 21:54 21:56 Temperature Pulse Rate Respiratory Rate Blood Pressure 111/70 111/70 111/70 Blood Pressure [Left] O2 Sat by Pulse 96 96 95 Oximetry 06/22/17 06/22/17 21:58 22:00 Temperature Pulse Rate Respiratory Rate Blood Pressure 111/70 111/70 Blood Pressure [Left] O2 Sat by Pulse 96 97 Oximetry <YASIR VILLARREAL - Last Filed: 06/23/17 01:44> ED Course Vital Signs 06/22/17 16:16 Temperature 98.2 F Pulse Rate 86 Respiratory 16 Rate Blood Pressure 112/78 O2 Sat by Pulse 96 Oximetry <FLORENCIA OLSEN - Last Filed: 06/22/17 20:01> Vital Signs 06/22/17 06/22/17 06/22/17 16:16 18:14 19:18 Temperature 98.2 F 98.2 F Pulse Rate 86 83 Respiratory 16 18 20 Rate Blood Pressure 112/78 Blood Pressure 122/68 [Left] O2 Sat by Pulse 96 98 100 Oximetry 06/22/17 06/22/17 06/22/17 21:37 21:38 21:40 Temperature Pulse Rate Respiratory Rate Blood Pressure 112/66 112/66 112/66 Blood Pressure [Left] O2 Sat by Pulse 97 95 96 Oximetry 06/22/17 06/22/17 06/22/17 21:42 21:44 21:45 Temperature Pulse Rate Respiratory Rate Blood Pressure 112/66 112/66 111/70 Blood Pressure [Left] O2 Sat by Pulse 97 96 96 Oximetry 06/22/17 06/22/17 06/22/17 21:46 21:48 21:50 Temperature Pulse Rate Respiratory Rate Blood Pressure 111/70 111/70 111/70 Blood Pressure [Left] O2 Sat by Pulse 96 99 96 Oximetry 06/22/17 06/22/17 06/22/17 21:52 21:54 21:56 Temperature Pulse Rate Respiratory Rate Blood Pressure 111/70 111/70 111/70 Blood Pressure [Left] O2 Sat by Pulse 96 96 95 Oximetry 06/22/17 06/22/17 21:58 22:00 Temperature Pulse Rate Respiratory Rate Blood Pressure 111/70 111/70 Blood Pressure [Left] O2 Sat by Pulse 96 97 Oximetry <YASIR VILLARREAL - Last Filed: 06/23/17 01:44> ED Medical Decision Making - Lab Data Result diagrams: 06/22/17 16:26 06/22/17 16:26 <FLORENCIA OLSEN - Last Filed: 06/22/17 20:01> - Lab Data Result diagrams: 06/22/17 16:26 06/22/17 16:26 - Medical Decision Making Ambulatory not clinically intoxicated vital signs stable no signs of trauma denies any complaints stable for follow-up with outpatient patient encouraged to arrange detox w aaor through her regular doctorno motor or sensory deficits neuro-grossly nonfocal <YASIR VILLARREAL - Last Filed: 06/23/17 01:44> Critical care attestation.: If time is entered above; I have spent that time in minutes in the direct care of this critically ill patient, excluding procedure time. <FLORENCIA OLSEN - Last Filed: 06/22/17 20:01> Critical care attestation.: If time is entered above; I have spent that time in minutes in the direct care of this critically ill patient, excluding procedure time. <YASIR VILLARREAL - Last Filed: 06/23/17 01:44> ED Disposition <LABADY,FLORENCIA - Last Filed: 06/22/17 20:01> Is pt being admited?: No Time of Disposition: 01:44 <YASIR VILLARREAL - Last Filed: 06/23/17 01:44> Clinical Impression: ETOH abuse Disposition: DC-01 TO HOME OR SELFCARE Condition: Stable Instructions: Abuse of Alcohol (ED), Alcohol Intoxication (ED) Additional Instructions: Go to AA and get detox see the doctor listed her regular doctor return if new or alarming symptoms Referrals: SONAL PAL MD [Staff Physician] - 3-5 Days
[2017-06-22 16:41] LABS: Hematocrit 37.1 % (30.3-42.9); Hemoglobin 12.4 gm/dl (10.1-14.3); Mean Corpuscular HGB Conc 33 % (30-34); Mean Corpuscular Hemoglobin 37 pg (28-32); Platelet Count 205 K/mm3 (140-440); Red Blood Count 3.35 M/mm3 (3.65-5.03)
[2017-06-22 16:43] LABS: Mean Corpuscular Volume 111 fl (79-97)
[2017-06-22 16:56] LABS: Bilirubin,Urine NEG (Negative); Blood,Urine NEG (Negative); Color,Urine Straw (Yellow); Protein,Urine <15 mg/dL mg/dL (Negative); RBC,Urine < 1.0 /HPF (0.0-6.0); Urobilinogen,Urine < 2.0 mg/dL (<2.0)
[2017-06-22 17:01] LABS: BUN/Creatinine Ratio 13; Blood Urea Nitrogen 5 mg/dL (7-17); Hemolysis Index 44
[2017-06-22 17:04] LABS: Amphetamine Screen,Urine PRESUMPTIVE NEGATIVE; Benzodiazepines Screen,Urine PRESUMPTIVE NEGATIVE; Cannabinoid Screen,Urine PRESUMPTIVE NEGATIVE; Cocaine Screen,Urine PRESUMPTIVE NEGATIVE; Methadone Screen,Urine PRESUMPTIVE NEGATIVE; Opiate Screen,Urine PRESUMPTIVE NEGATIVE
[2017-06-22 17:18] LABS: Basophils % (Manual) 0 % (0.0-1.8); Eosinophils % (Manual) 0 % (0.0-4.3); Total Cells Counted 100
[2017-06-22 17:19] LABS: Macrocytosis 1+
[2017-06-22 17:20] LABS: Poikilocytosis 1+; Target Cells Few
[2017-06-23 01:42] VITALS: BP 124/78
== END 2017-06-23 01:45 | disposition home or self-care (01) ==
LOC: ED 15:38
DX: F10.10 Alcohol abuse, uncomplicated (principal); I10 Essential (primary) hypertension; F31.9 Bipolar disorder, unspecified; F20.9 Schizophrenia, unspecified; J45.909 Unspecified asthma, uncomplicated; Z98.51 Tubal ligation status; F17.200 Nicotine dependence, unspecified, uncomplicated
CPT/HCPCS: 36415; 80048; 80307; 81001; 85007; 85025; 96360; 99283; G0480; J7030; 80320

== ENCOUNTER 2017-07-20 01:52 | Emergency (ER) | payer SELFPAY ==
[2017-07-20 02:55] LABS: Hematocrit 34.4 % (30.3-42.9); Hemoglobin 11.9 gm/dl (10.1-14.3); Mean Corpuscular HGB Conc 35 % (30-34); Mean Corpuscular Hemoglobin 38 pg (28-32); Mean Corpuscular Volume 109 fl (79-97); Platelet Count 131 K/mm3 (140-440); Red Blood Count 3.17 M/mm3 (3.65-5.03); Red Cell Distribution Width 15.6 % (13.2-15.2)
[2017-07-20] MEDS ORDERED: NACL 0.9% 500 ML 500 ML ONE (03:03)
[2017-07-20 03:12] LABS: BUN/Creatinine Ratio 18; Blood Urea Nitrogen 7 mg/dL (7-17); Calcium 8.4 mg/dL (8.4-10.2); Hemolysis Index 11
[2017-07-20] MEDS ORDERED: NACL 0.9% 500 ML 500 ML IV ONE ×2 (03:23→04:33)
[2017-07-20 03:24] LABS: Bilirubin,Urine NEG (Negative); Blood,Urine MOD (Negative); Color,Urine Yellow (Yellow); Mucus,Urine FEW /HPF; Urobilinogen,Urine < 2.0 mg/dL (<2.0)
[2017-07-20 03:50] LABS: Amphetamine Screen,Urine PRESUMPTIVE NEGATIVE; Cannabinoid Screen,Urine PRESUMPTIVE NEGATIVE; Cocaine Screen,Urine PRESUMPTIVE NEGATIVE; Methadone Screen,Urine PRESUMPTIVE NEGATIVE; Opiate Screen,Urine PRESUMPTIVE NEGATIVE
[2017-07-20 03:52] LABS: Anisocytosis 1+; Basophils % (Manual) 0 % (0.0-1.8); Total Cells Counted 100
[2017-07-20 03:53] LABS: Macrocytosis 1+
[2017-07-20 03:54] LABS: Platelet Estimate Consistent w Auto
[2017-07-20 04:04] LABS: Benzodiazepines Screen,Urine PRESUMPTIVE POSITIVE
[2017-07-20] MEDS ORDERED: NACL 0.9% 1000 ML 1,000 ML IV ONE ×2 (06:15→06:33)
[2017-07-20] MEDS ORDERED: K-DUR PO ONE (06:16)
[2017-07-20 06:31] LABS: Alanine Aminotransferase 27 units/L (7-56); Albumin 4.1 g/dL (3.9-5)
[2017-07-20 06:49] LABS: Bilirubin,Direct < 0.2 mg/dL (0-0.2)
[2017-07-20 07:05] VITALS: BP 116/79
--- NOTE | 2017-07-20 10:21 | Emergency Department Report ---
ED Alcohol HPI - General Chief Complaint: Alcohol Stated Complaint: ETOH Time Seen by Provider: 07/20/17 06:17 Source: EMS Mode of arrival: Stretcher Limitations: No Limitations - History of Present Illness Initial Comments: 52 yo femal with a past medical history of alcohol abuse, hypertension, asthma, schizophrenia, bipolar disorder presents to the hospital after being found in able to lie on the ground and intoxicated. Patient presented alert and oriented 3 and denies any pain or discomfort. Patient is sleeping during my evaluation but arousable and denies any pain, fall, or injuy. Also ambulating in the ED without difficulty. - Related Data Previous Rx's Medication Instructions Recorded Last Taken Type Ibuprofen [Motrin 800 MG tab] 800 mg PO TID PRN #30 tablet 10/13/13 Unknown Rx Ibuprofen [Motrin 800 MG tab] 800 mg PO Q8HR #30 tablet 01/19/15 Unknown Rx Ibuprofen [Motrin 600 MG tab] 600 mg PO Q8H PRN #30 tablet 02/21/15 Unknown Rx traMADol [Ultram 50 MG tab] 50 mg PO Q6HR PRN #20 tablet 02/21/15 Unknown Rx Albuterol Sulfate [Ventolin HFA] 2 puff IH Q4H PRN #1 hfa.aer.ad 08/10/15 Unknown Rx Benzonatate [Tessalon Perles] 100 mg PO Q8HR #21 capsule 08/10/15 Unknown Rx predniSONE [Deltasone] 20 mg PO QDAY #10 tab 08/10/15 Unknown Rx traMADol [Ultram 50 MG tab] 50 mg PO Q6HR PRN #20 tablet 06/24/16 Unknown Rx Lisinopril [Zestril TAB] 20 mg PO QDAY #30 tablet 02/24/17 Unknown Rx Mvit-Mins/Folic Acid/Soy Isofl 1 each PO DAILY #30 tablet 02/24/17 Unknown Rx [One-A-Day Menopause Formula Tb] Thiamine [Vitamin B-1] 100 mg PO QDAY #15 tablet 02/24/17 Unknown Rx Allergies Allergy/AdvReac Type Severity Reaction Status Date / Time Sulfa (Sulfonamide Allergy Itching Verified 08/10/15 12:45 Antibiotics) ED Review of Systems ROS: Stated complaint: ETOH Other details as noted in HPI Comment: All other systems reviewed and negative ED Past Medical Hx - Past Medical History Hx Hypertension: Yes Hx Psychiatric Treatment: Yes (schizophrenia,bipolar, depression) Hx Asthma: Yes Hx Tuberculosis: No Additional medical history: Left foot fx. - Surgical History Additional Surgical History: . TUBAL LIGATION - Social History Smoking Status: Current Every Day Smoker Substance Use Type: Alcohol, Marijuana - Medications Home Medications: Home Medications Medication Instructions Recorded Confirmed Last Taken Type Ibuprofen [Motrin 800 MG tab] 800 mg PO TID PRN #30 tablet 10/13/13 12/06/15 Unknown Rx Ibuprofen [Motrin 800 MG tab] 800 mg PO Q8HR #30 tablet 01/19/15 12/06/15 Unknown Rx Ibuprofen [Motrin 600 MG tab] 600 mg PO Q8H PRN #30 tablet 02/21/15 12/06/15 Unknown Rx traMADol [Ultram 50 MG tab] 50 mg PO Q6HR PRN #20 tablet 02/21/15 12/06/15 Unknown Rx Albuterol Sulfate [Ventolin HFA] 2 puff IH Q4H PRN #1 hfa.aer.ad 08/10/15 Unknown Rx Benzonatate [Tessalon Perles] 100 mg PO Q8HR #21 capsule 08/10/15 12/06/15 Unknown Rx predniSONE [Deltasone] 20 mg PO QDAY #10 tab 08/10/15 12/06/15 Unknown Rx traMADol [Ultram 50 MG tab] 50 mg PO Q6HR PRN #20 tablet 06/24/16 Unknown Rx Lisinopril [Zestril TAB] 20 mg PO QDAY #30 tablet 02/24/17 Unknown Rx Mvit-Mins/Folic Acid/Soy Isofl 1 each PO DAILY #30 tablet 02/24/17 Unknown Rx [One-A-Day Menopause Formula Tb] Thiamine [Vitamin B-1] 100 mg PO QDAY #15 tablet 02/24/17 Unknown Rx ED Physical Exam - General Limitations: No Limitations - Other Other exam information: General: No limitations, patient is alert in no acute distress Head exam: Atraumatic, normocephalic Eyes exam: Normal appearance ENT: Moist mucous membrane Neck exam: Normal inspection, full range of motion, no meningismus nontender Respiratory exam: Clear to auscultation bilateral, no wheezes, rales, crackles Cardiovascular: Normal rate and rhythm, normal heart sounds Abdomen: Soft, nondistended, and nontender, with normal bowel sounds, no rebound, or guarding Extremity: Full range of motion normal inspection no deformity Back: Normal Inspection, full range of motion, no tenderness Neurologic: Alert, oriented x3, cranial nerves intact, no motor or sensory deficit Psychiatric: normal affect, normal mood Skin: Warm, dry, intact ED Course Vital Signs 07/20/17 07/20/17 07/20/17 01:59 02:00 02:11 Temperature 98 F Pulse Rate 85 86 Respiratory 23 16 Rate Blood Pressure 124/84 124/84 124/84 O2 Sat by Pulse 100 99 100 Oximetry 07/20/17 07/20/17 07/20/17 02:16 02:32 02:46 Temperature Pulse Rate 85 84 83 Respiratory 17 17 14 Rate Blood Pressure 124/84 103/70 O2 Sat by Pulse 99 99 84 Oximetry 07/20/17 07/20/17 07/20/17 03:00 03:16 03:21 Temperature Pulse Rate 81 84 Respiratory 14 14 18 Rate Blood Pressure 77/50 77/50 O2 Sat by Pulse 86 96 Oximetry 07/20/17 07/20/17 07/20/17 03:30 03:46 04:00 Temperature Pulse Rate 92 H 78 80 Respiratory 14 11 L 14 Rate Blood Pressure 78/55 111/68 89/55 O2 Sat by Pulse 99 100 92 Oximetry 07/20/17 07/20/17 07/20/17 04:16 04:30 04:45 Temperature Pulse Rate 79 78 80 Respiratory 14 14 14 Rate Blood Pressure 89/55 111/68 84/57 O2 Sat by Pulse 93 91 96 Oximetry 07/20/17 07/20/17 07/20/17 05:00 05:16 05:30 Temperature Pulse Rate 87 82 83 Respiratory 10 L 19 15 Rate Blood Pressure 88/54 88/54 83/49 O2 Sat by Pulse 96 92 Oximetry 07/20/17 07/20/17 07/20/17 05:46 06:00 06:16 Temperature Pulse Rate 82 99 H 82 Respiratory 14 14 15 Rate Blood Pressure 75/37 76/53 76/53 O2 Sat by Pulse 90 90 95 Oximetry 07/20/17 07/20/17 07/20/17 06:30 06:46 07:00 Temperature Pulse Rate 86 76 73 Respiratory 21 14 15 Rate Blood Pressure 71/41 117/73 116/79 O2 Sat by Pulse 96 96 99 Oximetry - Reevaluation(s) Reevaluation #1: 07/20/17 10:[address] intoxicated [address] his blood pressure was low but improved after normal saline and remained elevated. No signs of infection with sepsis. Reevaluation #2: 07/20/17 11:31 gait steady pt without withdrawal sx family here to pick her up ED Medical Decision Making - Lab Data Result diagrams: 07/20/17 02:40 07/20/17 02:40 Lab Results 07/20/17 07/20/17 07/20/17 Range/Units 02:40 02:40 02:40 WBC (4.5-11.0) K/mm3 RBC (3.65-5.03) M/mm3 Hgb (10.1-14.3) gm/dl Hct (30.3-42.9) % MCV (79-97) fl MCH (28-32) pg MCHC (30-34) % RDW (13.2-15.2) % Plt Count (140-440) K/mm3 Lymph % (Auto) Add Manual Diff Total Counted Seg Neutrophils % Seg Neuts % (Manual) (40.0-70.0) % Band Neutrophils % % Lymphocytes % (Manual) (13.4-35.0) % Reactive Lymphs % (Man) % Monocytes % (Manual) (0.0-7.3) % Eosinophils % (Manual) (0.0-4.3) % Basophils % (Manual) (0.0-1.8) % Metamyelocytes % % Myelocytes % % Promyelocytes % % Blast Cells % % Nucleated RBC % Seg Neutrophils # Man (1.8-7.7) K/mm3 Band Neutrophils # K/mm3 Lymphocytes # (Manual) (1.2-5.4) K/mm3 Abs React Lymphs (Man) K/mm3 Monocytes # (Manual) (0.0-0.8) K/mm3 Eosinophils # (Manual) (0.0-0.4) K/mm3 Basophils # (Manual) (0.0-0.1) K/mm3 Metamyelocytes # K/mm3 Myelocytes # K/mm3 Promyelocytes # K/mm3 Blast Cells # K/mm3 WBC Morphology Hypersegmented Neuts Hyposegmented Neuts Hypogranular Neuts Smudge Cells Toxic Granulation Toxic Vacuolation Dohle Bodies Pelger-Huet Anomaly Andrew Rods Platelet Estimate Clumped Platelets Plt Clumps, EDTA Large Platelets Giant Platelets Platelet Satelliting Plt Morphology Comment RBC Morphology Dimorphic RBCs Polychromasia Hypochromasia Poikilocytosis Anisocytosis Microcytosis Macrocytosis Spherocytes Pappenheimer Bodies Sickle Cells Target Cells Tear Drop Cells Ovalocytes Helmet Cells [place] Bodies [place] Angel Cells Bite Cells Crenated Cell Elliptocytes Acanthocytes (Spur) Rouleaux Hemoglobin C Crystals Schistocytes Malaria parasites Da Bodies Hem Pathologist Commnt Sodium 138 (137-145) mmol/L Potassium 3.4 L (3.6-5.0) mmol/L Chloride 95.4 L (98-107) mmol/L Carbon Dioxide 23 (22-30) mmol/L Anion Gap 23 mmol/L BUN 7 (7-17) mg/dL Creatinine 0.4 L (0.7-1.2) mg/dL Estimated GFR > 60 ml/min BUN/Creatinine Ratio 18 % Glucose 95 (65-100) mg/dL Calcium 8.4 (8.4-10.2) mg/dL Magnesium (1.7-2.3) mg/dL Total Bilirubin (0.1-1.2) mg/dL Direct Bilirubin (0-0.2) mg/dL Indirect Bilirubin mg/dL AST (5-40) units/L ALT (7-56) units/L Alkaline Phosphatase (35-129) units/L Total Protein (6.3-8.2) g/dL Albumin (3.9-5) g/dL Albumin/Globulin Ratio % Urine Color (Yellow) Urine Turbidity (Clear) Urine pH (5.0-7.0) Ur Specific [place] (1.003-1.030) Urine Protein (Negative) mg/dL Urine Glucose (UA) (Negative) mg/dL Urine Ketones (Negative) mg/dL Urine Blood (Negative) Urine Nitrite (Negative) Urine Bilirubin (Negative) Urine Urobilinogen (<2.0) mg/dL Ur Leukocyte Esterase (Negative) Urine WBC (Auto) (0.0-6.0) /HPF Urine RBC (Auto) (0.0-6.0) /HPF Urine Mucus /HPF Salicylates < 0.3 L (2.8-20.0) mg/dL Urine Opiates Screen Urine Methadone Screen Acetaminophen < 5.0 L (10.0-30.0) ug/mL Ur Barbiturates Screen Ur Phencyclidine Scrn Ur Amphetamines Screen U Benzodiazepines Scrn Urine Cocaine Screen U Marijuana (THC) Screen Drugs of Abuse Note Plasma/Serum Alcohol (0-0.07) % 07/20/17 07/20/17 07/20/17 Range/Units 02:40 02:40 02:40 WBC 3.8 L (4.5-11.0) K/mm3 RBC 3.17 L (3.65-5.03) M/mm3 Hgb 11.9 (10.1-14.3) gm/dl Hct 34.4 (30.3-42.9) % MCV 109 H (79-97) fl MCH 38 H (28-32) pg MCHC 35 H (30-34) % RDW 15.6 H (13.2-15.2) % Plt Count 131 L (140-440) K/mm3 Lymph % (Auto) Crop Research Scientist Add Manual Diff Complete Total Counted 100 Seg Neutrophils % C[employer] Research Scientist Seg Neuts % (Manual) 35.0 L (40.0-70.0) % Band Neutrophils % 1.0 % Lymphocytes % (Manual) 53.0 H (13.4-35.0) % Reactive Lymphs % (Man) 0 % Monocytes % (Manual) 7.0 (0.0-7.3) % Eosinophils % (Manual) 4.0 (0.0-4.3) % Basophils % (Manual) 0 (0.0-1.8) % Metamyelocytes % 0 % Myelocytes % 0 % Promyelocytes % 0 % Blast Cells % 0 % Nucleated RBC % Not Reportable Seg Neutrophils # Man 1.3 L (1.8-7.7) K/mm3 Band Neutrophils # 0.0 K/mm3 Lymphocytes # (Manual) 2.0 (1.2-5.4) K/mm3 Abs React Lymphs (Man) 0.0 K/mm3 Monocytes # (Manual) 0.3 (0.0-0.8) K/mm3 Eosinophils # (Manual) 0.2 (0.0-0.4) K/mm3 Basophils # (Manual) 0.0 (0.0-0.1) K/mm3 Metamyelocytes # 0.0 K/mm3 Myelocytes # 0.0 K/mm3 Promyelocytes # 0.0 K/mm3 Blast Cells # 0.0 K/mm3 WBC Morphology Not Reportable Hypersegmented Neuts Not Reportable Hyposegmented Neuts Not Reportable Hypogranular Neuts Not Reportable Smudge Cells Not Reportable Toxic Granulation Not Reportable Toxic Vacuolation Not Reportable Dohle Bodies Not Reportable Pelger-Huet Anomaly Not Reportable Andrew Rods Not Reportable Platelet Estimate Consistent w auto Clumped Platelets Not Reportable Plt Clumps, EDTA Not Reportable Large Platelets Not Reportable Giant Platelets Not Reportable Platelet Satelliting Not Reportable Plt Morphology Comment Not Reportable RBC Morphology Not Reportable Dimorphic RBCs Not Reportable Polychromasia Not Reportable Hypochromasia Not Reportable Poikilocytosis Not Reportable Anisocytosis 1+ Microcytosis Not Reportable Macrocytosis 1+ Spherocytes Not Reportable Pappenheimer Bodies Not Reportable Sickle Cells Not Reportable Target Cells Not Reportable Tear Drop Cells Not Reportable Ovalocytes Not Reportable Helmet Cells Not Reportable [place] Bodies Not Reportable [place] Rings Not Reportable Angel Cells Not Reportable Bite Cells Not Reportable Crenated Cell Not Reportable Elliptocytes Not Reportable Acanthocytes (Spur) Not Reportable Rouleaux Not Reportable Hemoglobin C Crystals Not Reportable Schistocytes Not Reportable Malaria parasites Not Reportable Da Bodies Not Reportable Hem Pathologist Commnt No Sodium (137-145) mmol/L Potassium (3.6-5.0) mmol/L Chloride (98-107) mmol/L Carbon Dioxide (22-30) mmol/L Anion Gap mmol/L BUN (7-17) mg/dL Creatinine (0.7-1.2) mg/dL Estimated GFR ml/min BUN/Creatinine Ratio % Glucose (65-100) mg/dL Calcium (8.4-10.2) mg/dL Magnesium 2.00 (1.7-2.3) mg/dL Total Bilirubin < 0.20 (0.1-1.2) mg/dL Direct Bilirubin < 0.2 (0-0.2) mg/dL Indirect Bilirubin 0.0 mg/dL AST 82 H (5-40) units/L ALT 27 (7-56) units/L Alkaline Phosphatase 99 (35-129) units/L Total Protein 6.9 (6.3-8.2) g/dL Albumin 4.1 (3.9-5) g/dL Albumin/Globulin Ratio 1.5 % Urine Color (Yellow) Urine Turbidity (Clear) Urine pH (5.0-7.0) Ur Specific [place] (1.003-1.030) Urine Protein (Negative) mg/dL Urine Glucose (UA) (Negative) mg/dL Urine Ketones (Negative) mg/dL Urine Blood (Negative) Urine Nitrite (Negative) Urine Bilirubin (Negative) Urine Urobilinogen (<2.0) mg/dL Ur Leukocyte Esterase (Negative) Urine WBC (Auto) (0.0-6.0) /HPF Urine RBC (Auto) (0.0-6.0) /HPF Urine Mucus /HPF Salicylates (2.8-20.0) mg/dL Urine Opiates Screen Urine Methadone Screen Acetaminophen (10.0-30.0) ug/mL Ur Barbiturates Screen Ur Phencyclidine Scrn Ur Amphetamines Screen U Benzodiazepines Scrn Urine Cocaine Screen U Marijuana (THC) Screen Drugs of Abuse Note Plasma/Serum Alcohol 0.47 H (0-0.07) % 07/20/17 07/20/17 Range/Units Unknown Unknown WBC (4.5-11.0) K/mm3 RBC (3.65-5.03) M/mm3 Hgb (10.1-14.3) gm/dl Hct (30.3-42.9) % MCV (79-97) fl MCH (28-32) pg MCHC (30-34) % RDW (13.2-15.2) % Plt Count (140-440) K/mm3 Lymph % (Auto) Add Manual Diff Total Counted Seg Neutrophils % Seg Neuts % (Manual) (40.0-70.0) % Band Neutrophils % % Lymphocytes % (Manual) (13.4-35.0) % Reactive Lymphs % (Man) % Monocytes % (Manual) (0.0-7.3) % Eosinophils % (Manual) (0.0-4.3) % Basophils % (Manual) (0.0-1.8) % Metamyelocytes % % Myelocytes % % Promyelocytes % % Blast Cells % % Nucleated RBC % Seg Neutrophils # Man (1.8-7.7) K/mm3 Band Neutrophils # K/mm3 Lymphocytes # (Manual) (1.2-5.4) K/mm3 Abs React Lymphs (Man) K/mm3 Monocytes # (Manual) (0.0-0.8) K/mm3 Eosinophils # (Manual) (0.0-0.4) K/mm3 Basophils # (Manual) (0.0-0.1) K/mm3 Metamyelocytes # K/mm3 Myelocytes # K/mm3 Promyelocytes # K/mm3 Blast Cells # K/mm3 WBC Morphology Hypersegmented Neuts Hyposegmented Neuts Hypogranular Neuts Smudge Cells Toxic Granulation Toxic Vacuolation Dohle Bodies Pelger-Huet Anomaly Andrew Rods Platelet Estimate Clumped Platelets Plt Clumps, EDTA Large Platelets Giant Platelets Platelet Satelliting Plt Morphology Comment RBC Morphology Dimorphic RBCs Polychromasia Hypochromasia Poikilocytosis Anisocytosis Microcytosis Macrocytosis Spherocytes Pappenheimer Bodies Sickle Cells Target Cells Tear Drop Cells Ovalocytes Helmet Cells [place] Bodies [place] Angel Cells Bite Cells Crenated Cell Elliptocytes Acanthocytes (Spur) Rouleaux Hemoglobin C Crystals Schistocytes Malaria parasites Da Bodies Hem Pathologist Commnt Sodium (137-145) mmol/L Potassium (3.6-5.0) mmol/L Chloride (98-107) mmol/L Carbon Dioxide (22-30) mmol/L Anion Gap mmol/L BUN (7-17) mg/dL Creatinine (0.7-1.2) mg/dL Estimated GFR ml/min BUN/Creatinine Ratio % Glucose (65-100) mg/dL Calcium (8.4-10.2) mg/dL Magnesium (1.7-2.3) mg/dL Total Bilirubin (0.1-1.2) mg/dL Direct Bilirubin (0-0.2) mg/dL Indirect Bilirubin mg/dL AST (5-40) units/L ALT (7-56) units/L Alkaline Phosphatase (35-129) units/L Total Protein (6.3-8.2) g/dL Albumin (3.9-5) g/dL Albumin/Globulin Ratio % Urine Color Yellow (Yellow) Urine Turbidity Clear (Clear) Urine pH 5.0 (5.0-7.0) Ur Specific [place] 1.014 (1.003-1.030) Urine Protein 100 mg/dl (Negative) mg/dL Urine Glucose (UA) Neg (Negative) mg/dL Urine Ketones Neg (Negative) mg/dL Urine Blood Mod (Negative) Urine Nitrite Neg (Negative) Urine Bilirubin Neg (Negative) Urine Urobilinogen < 2.0 (<2.0) mg/dL Ur Leukocyte Esterase Neg (Negative) Urine WBC (Auto) 1.0 (0.0-6.0) /HPF Urine RBC (Auto) 1.0 (0.0-6.0) /HPF Urine Mucus Few /HPF Salicylates (2.8-20.0) mg/dL Urine Opiates Screen Presumptive negative Urine Methadone Screen Presumptive negative Acetaminophen (10.0-30.0) ug/mL Ur Barbiturates Screen Presumptive negative Ur Phencyclidine Scrn Presumptive negative Ur Amphetamines Screen Presumptive negative U Benzodiazepines Scrn Presumptive positive Urine Cocaine Screen Presumptive negative U Marijuana (THC) Screen Presumptive negative Drugs of Abuse Note Disclamer Plasma/Serum Alcohol (0-0.07) % - EKG Data -: EKG Interpreted by Pa EKG shows normal: sinus rhythm, axis (34), QRS complexes (93), ST-T waves (no stemi/t inv) - Medical Decision Making Alcohol intoxication Significant alcohol level upon arrival Associated hypotension that improved with IV fluid Hypokalemia supplement with by mouth kcl At baseline at discharge - Differential Diagnosis alcohol intoxication, drug abuse, sepsis, injury Critical Care Time: No Critical care attestation.: If time is entered above; I have spent that time in minutes in the direct care of this critically ill patient, excluding procedure time. ED Disposition Clinical Impression: Alcohol abuse, Hypokalemia, Thrombocytopenia Disposition: DC-01 TO HOME OR SELFCARE Is pt being admited?: No Does the pt Need Aspirin: No Condition: Stable Instructions: Abuse of Alcohol (ED), Thrombocytopenia (ED), Hypokalemia (ED) Additional Instructions: Follow-up with the clinic or doctor provided. You may also go to [facility] Department for help with alcohol abuse. Referrals: SONAL PAL MD [Primary Care Provider] - 3-5 Days [facility] [Outside] - 3-5 Days Time of Disposition: 11:33
== END 2017-07-20 12:29 | disposition home or self-care (01) ==
LOC: ED 01:52
DX: F10.129 Alcohol abuse with intoxication, unspecified (principal); E87.6 Hypokalemia; D69.6 Thrombocytopenia, unspecified; F13.10 Sedative, hypnotic or anxiolytic abuse, uncomplicated; I10 Essential (primary) hypertension; F31.9 Bipolar disorder, unspecified; F20.9 Schizophrenia, unspecified; J45.909 Unspecified asthma, uncomplicated; F17.200 Nicotine dependence, unspecified, uncomplicated; F12.10 Cannabis abuse, uncomplicated; Y90.9 Presence of alcohol in blood, level not specified; Z98.51 Tubal ligation status; Z88.2 Allergy status to sulfonamides; Z79.899 Other long term (current) drug therapy
CPT/HCPCS: 36415; 80048; 80074; 80307; 81001; 83735; 85007; 85025; 93005; 93010; 96360; 96361; 99284; G0480; J7030; J7040; 80320

== ENCOUNTER 2018-01-03 23:36 | Emergency (ER) | payer SELFPAY ==
[2018-01-04 00:38] VITALS: BP 105/81
[2018-01-04] MEDS ORDERED: MOTRIN PO ONE (04:52)
--- NOTE | 2018-01-04 04:52 | Emergency Department Report ---
ED Extremity Problem HPI - General Chief complaint: Extremity Problem,Nontraumatic Stated complaint: BILATERAL FOOT PAIN Time Seen by Provider: 01/04/18 04:34 Source: patient Mode of arrival: Ambulatory Limitations: No Limitations - History of Present Illness Initial comments: This is a 52-year-old female here report that she injured her left foot last night before coming to the hospital. She said she tripped and hit her foot on the left outer and now it is bruised with pain. She is also complaining her right great toe pain and swelling from where she had a bad dream and she said that she had a nightmare and she and the kick in the wall and injured her right toe last week. Pain is 6 out of 10 to both feet and aching. Pain worse with palpation and weightbearing. Denies any numbness or tingling. Denies any head injury or headache. Denies any back or neck pain. No medication taken per patient prior to coming to the hospital. MD Complaint: joint swelling, joint paint -: Last night Location: bilateral lower extremity, toe (right great toe), other (left lateral foot bruised and swollen) History of Same: No -: Yes arthralgia Radiation: none Severity scale (0 -10): 6 Quality: aching Consistency: constant Improves with: rest Worsens with: weight bearing, walking, exertion, palpation Associated Symptoms: arthralgias. denies: chest pain, shortness of breath, fever, myalgias, rash - Related Data Previous Rx's Medication Instructions Recorded Last Taken Type Ibuprofen [Motrin 800 MG tab] 800 mg PO TID PRN #30 tablet 10/13/13 Unknown Rx Ibuprofen [Motrin 800 MG tab] 800 mg PO Q8HR #30 tablet 01/19/15 Unknown Rx Ibuprofen [Motrin 600 MG tab] 600 mg PO Q8H PRN #30 tablet 02/21/15 Unknown Rx traMADol [Ultram 50 MG tab] 50 mg PO Q6HR PRN #20 tablet 02/21/15 Unknown Rx Albuterol Sulfate [Ventolin HFA] 2 puff IH Q4H PRN #1 hfa.aer.ad 08/10/15 Unknown Rx Benzonatate [Tessalon Perles] 100 mg PO Q8HR #21 capsule 08/10/15 Unknown Rx predniSONE [Deltasone] 20 mg PO QDAY #10 tab 08/10/15 Unknown Rx traMADol [Ultram 50 MG tab] 50 mg PO Q6HR PRN #20 tablet 06/24/16 Unknown Rx Lisinopril [Zestril TAB] 20 mg PO QDAY #30 tablet 02/24/17 Unknown Rx Mvit-Mins/Folic Acid/Soy Isofl 1 each PO DAILY #30 tablet 02/24/17 Unknown Rx [One-A-Day Menopause Formula Tb] Thiamine [Vitamin B-1] 100 mg PO QDAY #15 tablet 02/24/17 Unknown Rx Ibuprofen [Motrin] 600 mg PO Q8H PRN #12 tablet 01/04/18 Unknown Rx Allergies Allergy/AdvReac Type Severity Reaction Status Date / Time Sulfa (Sulfonamide Allergy Itching Verified 08/10/15 12:45 Antibiotics) ED Review of Systems ROS: Stated complaint: BILATERAL FOOT PAIN Other details as noted in HPI Constitutional: denies: chills, fever Respiratory: denies: cough, shortness of breath, SOB with exertion, SOB at rest , stridor, wheezing Cardiovascular: denies: chest pain, palpitations, edema, syncope Gastrointestinal: denies: nausea, vomiting Musculoskeletal: joint swelling, arthralgia. denies: back pain Skin: denies: rash, lesions Neurological: abnormal gait (due to bilateral feet pain and injury). denies: headache, weakness, numbness, paresthesias, vertigo ED Past Medical Hx - Past Medical History Previous Medical History?: Yes Hx Hypertension: Yes Hx Psychiatric Treatment: Yes (schizophrenia,bipolar, depression) Hx Asthma: Yes Hx Tuberculosis: No Additional medical history: Left foot fx. - Surgical History Past Surgical History?: Yes Additional Surgical History: . TUBAL LIGATION - Family History Family history: hypertension - Social History Smoking Status: Never Smoker Substance Use Type: Alcohol - Medications Home Medications: Home Medications Medication Instructions Recorded Confirmed Last Taken Type Ibuprofen [Motrin 800 MG tab] 800 mg PO TID PRN #30 tablet 10/13/13 12/06/15 Unknown Rx Ibuprofen [Motrin 800 MG tab] 800 mg PO Q8HR #30 tablet 01/19/15 12/06/15 Unknown Rx Ibuprofen [Motrin 600 MG tab] 600 mg PO Q8H PRN #30 tablet 02/21/15 12/06/15 Unknown Rx traMADol [Ultram 50 MG tab] 50 mg PO Q6HR PRN #20 tablet 02/21/15 12/06/15 Unknown Rx Albuterol Sulfate [Ventolin HFA] 2 puff IH Q4H PRN #1 hfa.aer.ad 08/10/15 Unknown Rx Benzonatate [Tessalon Perles] 100 mg PO Q8HR #21 capsule 08/10/15 12/06/15 Unknown Rx predniSONE [Deltasone] 20 mg PO QDAY #10 tab 08/10/15 12/06/15 Unknown Rx traMADol [Ultram 50 MG tab] 50 mg PO Q6HR PRN #20 tablet 06/24/16 Unknown Rx Lisinopril [Zestril TAB] 20 mg PO QDAY #30 tablet 02/24/17 Unknown Rx Mvit-Mins/Folic Acid/Soy Isofl 1 each PO DAILY #30 tablet 02/24/17 Unknown Rx [One-A-Day Menopause Formula Tb] Thiamine [Vitamin B-1] 100 mg PO QDAY #15 tablet 02/24/17 Unknown Rx Ibuprofen [Motrin] 600 mg PO Q8H PRN #12 tablet 01/04/18 Unknown Rx ED Physical Exam - General Limitations: No Limitations General appearance: alert, in no apparent distress - Head Head exam: Present: atraumatic, normocephalic, normal inspection, other (normal exam) - Eye Eye exam: Present: normal appearance, PERRL, EOMI Pupils: Present: normal accommodation - ENT ENT exam: Present: normal exam, normal orophraynx, mucous membranes moist - Neck Neck exam: Present: normal inspection, full ROM, other (no C-spine tenderness). Absent: tenderness, lymphadenopathy - Respiratory Respiratory exam: Present: normal lung sounds bilaterally. Absent: respiratory distress, chest wall tenderness - Cardiovascular Cardiovascular Exam: Present: regular rate, normal rhythm, normal heart sounds, gallop. Absent: systolic murmur, diastolic murmur - Extremities Exam Extremities exam: Present: normal inspection, full ROM (patient with full range of motion but she reports pain to left outer lateral foot with dorsiflexion and also to right great toe with passive and active range of motion.), tenderness ( tender to palpate to right great toe and left outer lateral foot, fifth metatarsal bone medially), normal capillary refill, pedal edema (left outer lateral foot), joint swelling (left outer lateral foot and right great toe), other (No cce. + 2 pulses in all extremities, no neurovascular compromise except she has mild swelling with bruising to left outer lateral foot with tenderness to palpate to fifth mid metatarsal bone and right great toe. She is swelling to right great toe. ). Absent: calf tenderness - Back Exam Back exam: Present: normal inspection, full ROM, other (patient able to ambulate but she limps due to pain in both feet from injury). Absent: tenderness, paraspinal tenderness, vertebral tenderness, rash noted - Neurological Exam Neurological exam: Present: alert, oriented X3, abnormal gait (due to pain in both feet from injury), reflexes normal. Absent: motor sensory deficit - Psychiatric Psychiatric exam: Present: normal affect, normal mood - Skin Skin exam: Present: warm, dry, intact, normal color, ecchymosis (left outer lateral foot from injury.). Absent: rash ED Course Vital Signs 01/04/18 00:30 Temperature 98.2 F Pulse Rate 97 H Respiratory 14 Rate Blood Pressure 105/81 O2 Sat by Pulse 99 Oximetry - Reevaluation(s) Reevaluation #1: 01/04/18 06:24 Patient given Motrin 800 mg by mouth for bilateral foot pain. She reports pain is better. Please see procedure note for details and splinted - Orthopedic Splinting/Casting Injury #1 Side: left Lower Extremity Injury Location: foot Lower Extremity Immobilizer: post-op shoe Other Orthopedic Equipment: crutches Injury #2 Side: right Lower Extremity Injury Location: foot Lower Extremity Immobilizer: post-op shoe Other Orthopedic Equipment: crutches Additional Comments: Patient with good pedal pulses status post postop shoe and both feet. ED Medical Decision Making - Radiology Data Radiology results: report reviewed X-ray of both feet 3 views dictated by radiologist and reports reviewed by myself. Please see report below. XRay Report Signed Patient: KODY RAM MR#: [id number] : 1965 Acct:[id number] Age/Sex: 52 / F ADM Date: 01/03/18 Loc: ED Attending Dr: Ordering Physician: ROSAMARIA ELDRIDGE Date of Service: 01/04/18 Procedure(s): XR foot BILAT 3+V Accession Number(s): [id number] cc: ROSAMARIA ELDRIDGE Time In Minutes: FINAL REPORT EXAM: XR FOOT BILAT 3+V HISTORY: bilateral foot pain and swelling due to injury. TECHNIQUE: Three views of each foot were obtained for total of 6 views. FINDINGS: The left foot reveals an acute oblique noted nondisplaced fracture of the midshaft of the 5th metatarsal with adjacent soft tissue swelling. There are no additional fractures of the left foot. Three views of the right foot show no evidence of acute fracture or soft tissue injury. There is a well-healed chronic fracture deformity involving the distal shaft of the 5th metatarsal. The soft tissues are unremarkable. IMPRESSION: Acute obliquely oriented nondisplaced fracture midshaft of the left 5th metatarsal with adjacent soft tissue swelling. No evidence of acute injury involving the right foot. Remote well-healed fracture involving the distal shaft of the right 5th metatarsal. Transcribed By: RB Dictated By: CARLIE DURBIN MD Electronically Authenticated By: CARLIE DURBIN MD Signed Date/Time: 01/04/18609 DD/ 9 TD/TT: 01/04/18609 - Medical Decision Making This is a 52-year-old female who presents to emergency room after injuring her left foot during a night's with swelling and pain and her right great toe last week after having a bad dream and nightmare and she kicked a wall and injured her right great toe and she is here for evaluation. Diagnostics: X-ray of both feet shows no acute fracture to right foot but she does have old fracture to fifth metatarsal bone area distally. She has no bony tenderness. Patient does have right great toe swelling with pain to range of motion and superficial soft tissue swelling without any bony tenderness. X-ray of left foot shows nondisplaced fracture left fifth mid metatarsal bone. Procedures: See procedure note for details on postop shoe placement. Assessment/plan 1: Arthralgia both feet status post injury-better with Motrin 800 mg by mouth 2: Nondisplaced fracture left fifth metatarsal bone-Rice therapy, postop shoe and crutches if patient able to use. She says she has to walk home. We will send home and pain medication 3: Contusion right great toe-postop shoe. Rice therapy. Referral to orthopedic doctor I discussed the patient a diagnosis, x-ray results, treatment plan, Rice therapy needs to not do any aggressive activity to her left foot due to broken bone in her foot. I discussed with her that she needs to follow up with orthopedic doctor in approximately 5 days and she voiced understanding. I discussed with her that she needs to rest her left foot and not weightbear to allow for healing of nondisplaced fracture or bone. He voiced understanding. Patient discharged home in stable condition with prescription for Motrin. See procedure note for details on splinting. Pain is better and discharged home in stable condition to follow up with orthopedic doctor. - Differential Diagnosis FX vs dislocation, contusion, strain, MSK pain Critical care attestation.: If time is entered above; I have spent that time in minutes in the direct care of this critically ill patient, excluding procedure time. ED Disposition Clinical Impression: Bilateral foot pain Fracture of metatarsal bone of left foot Qualifiers: Encounter type: initial encounter Metatarsal bone: fifth Fracture type: closed Fracture alignment: nondisplaced Qualified Code(s): S92.355A - Nondisplaced fracture of fifth metatarsal bone, left foot, initial encounter for closed fracture Contusion of right great toe without damage to nail Qualifiers: Encounter type: initial encounter Qualified Code(s): S90.111A - Contusion of right great toe without damage to nail, initial encounter Disposition: DC-01 TO HOME OR SELFCARE Is pt being admited?: No Does the pt Need Aspirin: No Condition: Stable Instructions: Arthralgia (ED), Foot Fracture in Adults (ED), Foot Contusion (ED ), RICE Therapy (ED), Crutch Instructions (ED) Additional Instructions: Please follow up with orthopedic doctor as instructed. Take Motrin for pain and this will help to reduce swelling to the foot. Please take this medication with food as it can cause irritation to stomach lining. Please do not take this medication while drinking alcohol because it can cause a bleed T his stomach No weightbearing to left foot. See discharge paperwork for rice therapy instructions Referrals: DANN DURAN MD [Primary Care Provider] - 01/07/18 CARLIE WONG MD [Staff Physician] - 01/07/18 [facility] [Outside] - 01/07/18 Forms: Work/School Release Form(ED)
--- NOTE | 2018-01-04 06:11 | XRay Report ---
FINAL REPORT EXAM: XR FOOT BILAT 3+V HISTORY: bilateral foot pain and swelling due to injury. TECHNIQUE: Three views of each foot were obtained for total of 6 views. FINDINGS: The left foot reveals an acute oblique noted nondisplaced fracture of the midshaft of the 5th metatarsal with adjacent soft tissue swelling. There are no additional fractures of the left foot. Three views of the right foot show no evidence of acute fracture or soft tissue injury. There is a well-healed chronic fracture deformity involving the distal shaft of the 5th metatarsal. The soft tissues are unremarkable. IMPRESSION: Acute obliquely oriented nondisplaced fracture midshaft of the left 5th metatarsal with adjacent soft tissue swelling. No evidence of acute injury involving the right foot. Remote well-healed fracture involving the distal shaft of the right 5th metatarsal.
== END 2018-01-04 07:20 | disposition home or self-care (01) ==
LOC: ED 23:36
DX: S92.355A Nondisplaced fracture of fifth metatarsal bone, left foot, initial encounter for closed fracture (principal); S90.111A Contusion of right great toe without damage to nail, initial encounter; I10 Essential (primary) hypertension; F31.9 Bipolar disorder, unspecified; F20.9 Schizophrenia, unspecified; Z98.51 Tubal ligation status; Z88.2 Allergy status to sulfonamides; W18.40XA Slipping, tripping and stumbling without falling, unspecified, initial encounter; Y93.89 Activity, other specified; Y92.89 Other specified places as the place of occurrence of the external cause; Y99.8 Other external cause status
CPT/HCPCS: 99283

== ENCOUNTER 2019-01-21 12:18 | Emergency (ER) | payer SELFPAY ==
[2019-01-21 12:35] VITALS: BP 135/82
[2019-01-21] MEDS ORDERED: TORADOL IM ONE (13:55)
--- NOTE | 2019-01-21 14:25 | Emergency Department Report ---
HPI - General Chief Complaint: Back Pain/Injury Time Seen by Provider: 01/21/19 13:47 - HPI HPI: 53-year-old -[place] female presents to the emergency department with complaint of acute on chronic left lower back pain and radiation down the left leg. Chest complains of some dysuria but that is more recent. She has a past mental history of asthma, hypertension, schizophrenia, bipolar disorder and a history of previous substance abuse/dependence. She is currently in a substance abuse program and is unable to take any scheduled medications. She has not taken anything [id number] for her symptoms prior to arrival today. The pain worsens with weightbearing and certain movements. She denies any fever, skin color change, numbness. ED Past Medical Hx - Past Medical History Previous Medical History?: Yes Hx Hypertension: Yes Hx Psychiatric Treatment: Yes (schizophrenia,bipolar, depression) Hx Asthma: Yes Hx Tuberculosis: No Additional medical history: Left foot fx. - Surgical History Past Surgical History?: Yes Additional Surgical History: . TUBAL LIGATION - Social History Smoking Status: Current Every Day Smoker Substance Use Type: None - Medications Home Medications: Home Medications Medication Instructions Recorded Confirmed Last Taken Type Ibuprofen [Motrin 800 MG tab] 800 mg PO TID PRN #30 tablet 10/13/13 12/06/15 Unknown Rx Ibuprofen [Motrin 800 MG tab] 800 mg PO Q8HR #30 tablet 01/19/15 12/06/15 Unknown Rx traMADol [Ultram 50 MG tab] 50 mg PO Q6HR PRN #20 tablet 02/21/15 12/06/15 Unknown Rx Albuterol Sulfate [Ventolin HFA] 2 puff IH Q4H PRN #1 hfa.aer.ad 08/10/15 12/06/15 Unknown Rx Benzonatate [Tessalon Perles] 100 mg PO Q8HR #21 capsule 08/10/15 12/06/15 Unknown Rx predniSONE [Deltasone] 20 mg PO QDAY #10 tab 08/10/15 12/06/15 Unknown Rx traMADol [Ultram 50 MG tab] 50 mg PO Q6HR PRN #20 tablet 06/24/16 Unknown Rx Lisinopril [Zestril TAB] 20 mg PO QDAY #30 tablet 02/24/17 Unknown Rx Mvit-Mins/Folic Acid/Soy Isofl 1 each PO DAILY #30 tablet 02/24/17 Unknown Rx [One-A-Day Menopause Formula Tb] Thiamine [Vitamin B-1] 100 mg PO QDAY #15 tablet 02/24/17 Unknown Rx Ibuprofen [Motrin] 600 mg PO Q8H PRN #12 tablet 01/04/18 Unknown Rx Acetaminophen [Tylenol] 1,000 mg PO Q6HR PRN #30 tablet 12/26/18 Unknown Rx Metoclopramide [Reglan] 10 mg PO Q6H PRN #30 tab 12/26/18 Unknown Rx amLODIPine [Norvasc] 5 mg PO DAILY #30 tab 12/26/18 Unknown Rx diphenhydrAMINE [Benadryl CAP] 25 mg PO Q6HR PRN #30 capsule 12/26/18 Unknown Rx Ibuprofen [Motrin 600 MG tab] 600 mg PO Q8H PRN #20 tablet 01/21/19 Unknown Rx ED Review of Systems ROS: Stated complaint: LOWER BACK PAIN Other details as noted in HPI Comment: All other systems reviewed and negative Constitutional: denies: chills, fever Gastrointestinal: denies: abdominal pain Genitourinary: dysuria. denies: discharge Musculoskeletal: back pain, arthralgia, myalgia. denies: joint swelling Skin: denies: rash, lesions Neurological: denies: weakness, numbness Physical Exam - Physical Exam Vital Signs: Vital Signs 01/21/19 12:34 Temperature 98.8 F Pulse Rate 84 Respiratory 18 Rate Blood Pressure 135/82 [Right] O2 Sat by Pulse 98 Oximetry Physical Exam: GENERAL: The patient is well-developed well-nourished. HENT: Normocephalic. Atraumatic. Patient has moist mucous membranes. EYES: Extraocular motions are intact. NECK: Supple. Trachea is midline. CHEST/LUNGS: Clear to auscultation. There is no respiratory distress noted. HEART/CARDIOVASCULAR: Regular. There is no tachycardia. There is no murmur. ABDOMEN: Abdomen is soft, nontender. Patient has normal bowel sounds. There is no abdominal distention. SKIN: Skin is warm and dry. NEURO: The patient is awake, alert, and oriented. The patient is cooperative. The patient has no focal neurologic deficits. Normal speech. MUSCULOSKELETAL: There is some reproducible tenderness to palpation along the left thigh but no obvious deformity. There is no limitation range of motion. BACK: There is both midline and left-sided paraspinal tenderness to palpation of the lumbar back but no step-off or deformity. ED Course Vital Signs 01/21/19 12:34 Temperature 98.8 F Pulse Rate 84 Respiratory 18 Rate Blood Pressure 135/82 [Right] O2 Sat by Pulse 98 Oximetry ED Medical Decision Making - Radiology Data Radiology results: report reviewed, image reviewed interpreted by me: X-ray of the left femur and x-ray of the lumbar spine do not show any fractures, subluxations, dislocations, or any acute process. DUPLEX DOPPLER LOWER EXTREMITY VEINS, LEFT INDICATION: LLE pain. TECHNIQUE: Duplex doppler imaging was performed through the veins of the left lower extremity using venous compression and other maneuvers. COMPARISON: No relevant prior imaging study available. FINDINGS: Left Common femoral vein: Negative. Left Superficial femoral vein: Negative. Left Popliteal vein: Negative. Left Calf veins: Negative. Additional findings: None.. IMPRESSION: 1. No sonographic evidence for DVT in the left lower extremity. - Medical Decision Making This patient presents to the emergency department with the complaint of some pain to the left lower back and the left upper leg into the hip and buttock. Overall this has been going on for the past 5 or 6 months but she has a recent exacerbation. No recent fall or trauma. Patient appears neurovascularly intact. Labs have been unremarkable. Vital signs stable throughout her ED course. X-ray was done of the femur and the lumbar spine was sacrum that does not show any fracture, dislocation, subluxation, or any acute process. She had a left lower extremity venous Doppler that was negative for DVT. Patient is currently and some type of substance recovery program and therefore we are avoiding any type of narcotic or addictive medications/treatment. She was given a dose of ibuprofen with some relief as her pain went down from a 10 to a 4. I explained to the patient that it is necessary to follow-up with an orthopedist for further evaluation of her back and leg pain. She was going to get a referral for orthopedist and a prescription for some anti-inflammatories the patient appears to have eloped prior to receiving her discharge paperwork. - Differential Diagnosis DVT, sciatica, cellulitis, peripheral neuropathy Critical Care Time: No Critical care attestation.: If time is entered above; I have spent that time in minutes in the direct care of this critically ill patient, excluding procedure time. ED Disposition Clinical Impression: Left leg pain Low back pain Qualifiers: Chronicity: unspecified Back pain laterality: left Sciatica presence: with sciatica Sciatica laterality: sciatica of left side Qualified Code(s): M54.42 - Lumbago with sciatica, left side Disposition: TO HOME OR SELFCARE Is pt being admited?: No Condition: Stable Instructions: Sciatica (ED), Arthralgia (ED), Back Pain (ED) Additional Instructions: Please follow-up with a primary care physician in the next few days. I am giving you a referral for a local orthopedist, Dr. No, to follow up regarding your back and leg pains. Return to the emergency Department with any worsening of your symptoms or any acute distress. Prescriptions: Ibuprofen [Motrin 600 MG tab] 600 mg PO Q8H PRN #20 tablet PRN Reason: Pain Referrals: PRIMARY MD ROGER [Primary Care Provider] - 2-3 Days CARLIE NO MD [Staff Physician] - 2-3 Days Time of Disposition: 17:22
[2019-01-21 14:35] LABS: Bacteria,Urine 1+ /HPF (Negative); Bilirubin,Urine NEG (Negative); Blood,Urine NEG (Negative); Color,Urine Yellow (Yellow); Protein,Urine <15 mg/dL mg/dL (Negative); Urobilinogen,Urine < 2.0 mg/dL (<2.0)
--- NOTE | 2019-01-21 15:16 | XRay Report ---
LUMBOSACRAL SPINE, 2 VIEWS INDICATION: Severe low back pain. COMPARISON: None. IMPRESSION: Normal alignment. Mild disc space narrowing is identified at L4-5. Mild diffuse facet a rthropathy. No acute osseous or soft tissue abnormality. Signer Name: Donavan Amador Jr, MD Signed: 01/21/2019 3:12 PM Workstation Name: [id number]
--- NOTE | 2019-01-21 15:27 | XRay Report ---
Left hip-4 views INDICATION: left leg pain. Chronic severe left leg pain COMPARISON: None. IMPRESSION: No acute osseous or soft tissue abnormality. 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 Signer Name: Joseluis Blancas MD Signed: 01/21/2019 3:23 PM Workstation Name: [id number]
--- NOTE | 2019-01-21 16:42 | Vascular Lab Report ---
DUPLEX DOPPLER LOWER EXTREMITY VEINS, LEFT INDICATION: LLE pain. TECHNIQUE: Duplex doppler imaging was performed through the veins of the left lower extremity using venous compr ession and other maneuvers. COMPARISON: No relevant prior imaging study available. FINDINGS: Left Common femoral vein: Negative. Left Superficial femoral vein: Negative. Left Popliteal vein: Negative. Left Calf veins: Negative. Additional findings: None.. IMPRESSION: 1. No sonographic evidence for DVT in the left lower extremity. Signer Name: Joseluis Blancas MD Signed: 01/21/2019 4:37 PM Workstation Name: [id number]
== END 2019-01-21 18:15 | disposition home or self-care (01) ==
LOC: ED 12:18
DX: M54.5 Low back pain (principal); M79.605 Pain in left leg; I10 Essential (primary) hypertension; F20.9 Schizophrenia, unspecified; F31.9 Bipolar disorder, unspecified; F17.200 Nicotine dependence, unspecified, uncomplicated; Z98.51 Tubal ligation status; Z88.2 Allergy status to sulfonamides
CPT/HCPCS: 72100; 73552; 81001; 93971; 96372; 99284; J1885